=== PATIENT | male | born 1945 | race Caucasian/White ===

== ENCOUNTER 2024-01-01 11:18 | Outpatient (RCR) | payer OTHER, SELFPAY | END 2024-01-01 23:59 | disposition home or self-care (01) | LOC: RPT 11:18 | PROVIDERS: ATTENDING PHYSICIAN Orthopaedic Surgery Adult Reconstructive Orthopaedic Surgery; FAMILY PHYSICIAN Family Medicine | DX: M17.11 Unilateral primary osteoarthritis, right knee (principal); R26.2 Difficulty in walking, not elsewhere classified; Z73.6 Limitation of activities due to disability | CPT/HCPCS: 97110; 97112; 97162; 97530 ==

== ENCOUNTER 2024-01-19 14:47 | Outpatient (RCR) | payer OTHER, SELFPAY | END 2024-01-19 23:59 | disposition home or self-care (01) | LOC: RPT 14:47 | PROVIDERS: ATTENDING PHYSICIAN Orthopaedic Surgery Adult Reconstructive Orthopaedic Surgery; FAMILY PHYSICIAN Family Medicine | DX: M17.11 Unilateral primary osteoarthritis, right knee (principal); Z73.6 Limitation of activities due to disability; R26.2 Difficulty in walking, not elsewhere classified; M62.81 Muscle weakness (generalized) | CPT/HCPCS: 97110; 97112; 97530 ==

== ENCOUNTER 2024-02-01 18:08 | Outpatient (RCR) | payer OTHER, SELFPAY | END 2024-02-01 23:59 | disposition home or self-care (01) | LOC: RPT 18:08 | PROVIDERS: ATTENDING PHYSICIAN Orthopaedic Surgery Adult Reconstructive Orthopaedic Surgery; FAMILY PHYSICIAN Family Medicine | DX: M17.11 Unilateral primary osteoarthritis, right knee (principal); Z73.6 Limitation of activities due to disability; R26.2 Difficulty in walking, not elsewhere classified; M62.81 Muscle weakness (generalized) | CPT/HCPCS: 97110; 97112; 97530 ==

== ENCOUNTER → 2024-02-23 14:37 | Outpatient (REF) | payer OTHER, SELFPAY | LOC: RAD 14:37 | PROVIDERS: ATTENDING PHYSICIAN Family Medicine; FAMILY PHYSICIAN Family Medicine | DX: M79.89 Other specified soft tissue disorders (principal); Z86.718 Personal history of other venous thrombosis and embolism; R06.02 Shortness of breath | CPT/HCPCS: 71046; 93970 ==

== ENCOUNTER → 2024-02-26 10:14 | Outpatient (REF) | payer OTHER, SELFPAY | LOC: HWRCS 10:14 | PROVIDERS: ATTENDING PHYSICIAN Family Medicine | DX: M79.89 Other specified soft tissue disorders (principal) | CPT/HCPCS: 93306 ==

== ENCOUNTER 2024-03-02 08:55 | Outpatient (RCR) | payer OTHER, SELFPAY | END 2024-03-02 23:59 | disposition home or self-care (01) | LOC: RPT 08:55 | PROVIDERS: ATTENDING PHYSICIAN Orthopaedic Surgery Adult Reconstructive Orthopaedic Surgery; FAMILY PHYSICIAN Family Medicine | DX: Z47.1 Aftercare following joint replacement surgery (principal); Z96.651 Presence of right artificial knee joint; G20.A1 Parkinson's disease without dyskinesia, without mention of fluctuations; Z73.6 Limitation of activities due to disability | CPT/HCPCS: 97010; 97110; 97116; 97163; 97530 ==

== ENCOUNTER 2024-03-31 12:56 | Outpatient (RCR) | payer OTHER, SELFPAY | END 2024-03-31 23:59 | disposition home or self-care (01) | LOC: RPT 12:56 | PROVIDERS: ATTENDING PHYSICIAN Orthopaedic Surgery Adult Reconstructive Orthopaedic Surgery; FAMILY PHYSICIAN Family Medicine | DX: M17.11 Unilateral primary osteoarthritis, right knee (principal); Z73.6 Limitation of activities due to disability; R26.2 Difficulty in walking, not elsewhere classified; M62.81 Muscle weakness (generalized) | CPT/HCPCS: 97010; 97110; 97112; 97116; 97140; 97530 ==

== ENCOUNTER 2024-04-09 17:21 | Inpatient (IN) | payer MEDICARE, OTHER, SELFPAY ==
[2024-04-09] VITALS (11 sets, daily range): BP systolic 99–142; BP diastolic 38–77; BMI 30.2; BMI 30.4
--- NOTE | 2024-04-09 14:13 | ED.GENMED ---
History of Present Illness
General
Chief Complaint: Extremity Pain (non-traumatic)
Source: patient and spouse
Exam Limitations: none
Time Seen by Provider: 04/09/24 14:03
Nursing documentation reviewed up to this point in time: agreed with
History of Present Illness
History of Present Illness:
78-year-old male with a past medical history of hypertension, hyperlipidemia, Parkinson's disease who presents to the emergency room for evaluation of left leg swelling, redness, pain. Patient notably had right total knee replacement with Dr. Liang
at [facility] 02/02/2024. He says that he had a left partial knee replacement about 5 years ago he cannot recall name of his surgeon. He says that yesterday evening and particular overnight last night he started to have pains in his left leg
he says shooting from the calf behind the knee and up towards the thigh. He says that he noticed he was having some chills and generalized weakness. His says that she has noticed over the past day or 2 that his left lower leg appears red.
Came to the emergency room to be assessed. He has not had any chest pain or shortness of breath. He denies any trauma to the leg or knee. He denies any other complaints. He does do physical therapy regularly status post knee replacement in January;
he has been ambulatory with a walker, has had difficulty bearing weight today due to pain in the left leg.
Past History
Past History
ED Past Medical History: Other (Parkinson's)
Social History
Tobacco: Non-smoker
Personal:
Living: with family
Review of Systems
Review of Systems
All Other Systems: ROS reviewed and negative except as documented in HPI and ROS
Constitutional: Reports chills; Denies fever
EENT: Denies sore throat or runny nose
Respiratory: Denies cough or trouble breathing
Cardiac: Denies chest pain
ABD/GI: Denies abdominal pain, nausea, vomiting or diarrhea
: Denies flank pain
Musculoskeletal: Reports muscle pain and edema; Denies neck pain or back pain
Skin: Reports other (Lower leg redness)
Neurological: Denies headache
Phy Exam
Physical Exam
Physical Exam:
General: Awake, alert, oriented x3; no acute distress
Head: Normocephalic, atraumatic
Eyes: Conjunctiva normal, sclera anicteric
Throat: Airway intact, handling secretions
Neck: Trachea midline, supple without meningismus
Lungs: Clear to auscultation bilaterally, no wheezing, rales, rhonchi
Heart: Regular rate and rhythm, no murmurs, gallops, or rubs
Neuro: No gross deficits
Skin: Skin findings as below
Extremities: +1 edema left lower extremity confined to the lower leg; he has scattered scabs/dry skin on bilateral lower extremities somewhat worse on the left; he has erythema and warmth of the left lower leg extending from the tibial tuberosity
down towards the ankle and he does have tenderness along the posterior calf as well as posterior medial thigh, no palpable cords; with particular attention of the left knee he has no joint effusion, no pain with manipulation of the patella, no joint
line tenderness and he is able to move the left knee through full active range of motion with only mild discomfort; he has good pulses throughout left lower extremity femoral, popliteal, DP/PT; on exam of the right lower extremity he has well-healed
anterior knee incision, no edema, good pulses, no tenderness and good range of motion
Scores
Heart Failure Risk
Heart Failure Risk Score: Not Applicable
Heart Score for Chest Pain Patients
STEMI patient?: Not applicable
Withdrawal Assessment of Alcohol
Withdrawal Assessment Completed?: Not applicable
Course
Orders/Labs/Results
Orders:
Orders
04/09/24 14:04
CR Knee - Left 4 Or More View* Urgent
Comment:
Reason For Exam: left knee pain
04/09/24 14:12
US Periph Venous LOWER Ext LT Urgent
Comment:
Reason For Exam: LLE redness, swelling
04/09/24 14:42
Complete Blood Count/With Diff Urgent
Comprehensive Metabolic Panel Urgent
PTT Urgent
Prothrombin Time Urgent
04/09/24 14:54
Acetaminophen [Tylenol] 1,000 mg PO NOW STA
04/09/24 15:53
Add On- LAB Urgent
Comments:: in lab
Tests Added?: Retic. count
04/09/24 16:13
Vancomycin 2000 mg IVPB x 1 LOADING DOSE Vancomycin [Vancocin] 2,000 mg 0.9% Sodium Chloride 500 ml [Nss] 500 ml IV NOW
Zosyn 3.375 grams IVPB NOW Piperacillin/Tazo 3.375 Gram [Zosyn] 3.375 gram in 50 ml IV NOW
04/09/24 16:16
Blood Culture Urgent
ERYN Source: Blood/Venous
Specimen Description:
04/09/24 16:17
Lactate Level [Lactic Acid] Urgent
Urinalysis Reflex To Culture Urgent
Ibuprofen [Motrin] 400 mg PO NOW STA
CR Chest Portable - 1 View Urgent
Comment:
Reason For Exam: fever, sepsis
Reason Study Needs to be Portable: Unable to Transport
04/09/24 16:46
Blood Culture Routine
ERYN Source: Blood/Venous
Specimen Description:
Abnormal Lab Results
04/09/24
14:42
WBC 23.8 H 10^3/uL
(4.8-10.8)
RBC 3.24 L 10^6/uL
(4.70-6.10)
Hgb 11.5 L g/dL
(13.0-18.0)
Hct 33.6 L %
(39.0-52.0)
MCV 103.7 H fL
(80.0-94.0)
MCH 35.5 H pg
(27.0-31.0)
RDW 15.4 H %
(11.5-14.5)
Abs Immat Gran (auto) 0.1 H 10^3/uL
(0-0.05)
Absolute Lymphs (auto) 18.8 H 10^3/uL
(1.2-3.4)
Absolute Monos (auto) 1.6 H 10^3/uL
(0.1-0.6)
Neutrophils % 14.0 L %
(42.2-75.2)
Lymphocytes % 78.9 H %
(20.5-51.1)
BUN 37 H mg/dl
(9-20)
Glucose 126 H mg/dl
(70-99)
Total Bilirubin 3.1 H mg/dl
(0.2-1.3)
04/09/24 14:42
04/09/24 14:42
Vital Signs
Temp: 38.0 C
Initial and Last Documented VS:
Initial Vital Signs
Temp Pulse Resp BP Pulse Ox
37.4 C 99 16 104/77 94
04/09/24 13:50 04/09/24 13:50 04/09/24 13:50 04/09/24 13:50 04/09/24 13:50
Last Documented Vital Signs
Temp Pulse Resp BP Pulse Ox
37.4 C 98 29 101/38 94
04/09/24 13:50 04/09/24 14:30 04/09/24 14:30 04/09/24 14:20 04/09/24 14:30
MDM/Problems Addressed
Differential Diagnosis Includes:
DVT, cellulitis, dependent edema
MDM/Problems Addressed:
78-year-old male who is 2 months status post right knee replacement presents with a left lower extremity pain, swelling, redness over the past 24 to 48 hours. He did have some associated chills last night (afebrile here). Vitals significant for
heart rate high 90s, mild tachypnea, exam as above. Will plan to check basic labs including a CBC and CMP, coags. Will check an x-ray of the knee as he reports pain shooting behind the knee although he denies any trauma. Will check left lower
extremity ultrasound to rule out DVT. Will monitor closely reassess after the above.
Patient spiked a fever, will treat with Tylenol. With tachypnea, fever, tachycardia added lactate blood cultures. Add urinalysis and chest x-ray for full septic workup although suspicion at this point is for left lower extremity cellulitis and
sepsis resultant.
Labs reviewed: CBC shows leukocytosis 23.8, anemia 11.5 which is decreased from prior labs although last labs from 2019. CMP elevated T. bili unclear clinical significance, LFTs otherwise normal. His left lower extremity ultrasound is negative for
DVT. X-ray of his knee negative for any acute pathology. Suspicion is for sepsis secondary to left lower extremity cellulitis at this point. Will plan to admit for continued treatment. Cover with antibiotics. Gentle IV fluids. Case discussed
with hospitalist.
Chronic conditions affecting care:
Parkinson's
*Radiology
Radiology exam reviewed: radiology read reviewed
*Pulse Oximetry
Patient hypoxic: no
*Critical Care Note
Total Time (30-74mins, 75-104mins- exclusive of procedures): Not Applicable
Data Reviewed
Review of Other/Old Records Reveals: Labs and Records
Source: patient, records and spouse
Patient Management
Discussion with other providers: Hospitalist (Discussed with hospitalist)
Escalation/DeEscalation of care consider admission/obs:
Admission indicated
ED Attending Note
-
Portions of this chart may have been created with voice recognition software.� Occasional wrong word or��sound alike� substitutions may have occurred due to the inherent limitations of voice recognition software.
Discharge Plan
Departure
Patient Disposition: Admit
Date of Disposition: 04/09/24
Time of Disposition: 16:20
Admit to doctor: Feliz
Presentation/result/management discussed w/ accepting MD/DO: Hospitalist
Discharge Problem:
Cellulitis, Sepsis
Prescriptions:
No Action
tolterodine 4 MG capsule,extended release 24hr
4 mg PO DAILY
carbidopa-levodopa 1 EACH tablet
1 ea PO QID
sertraline 50 MG tablet
50 mg PO DAILY
rosuvastatin 10 MG tablet
10 mg PO DAILY
rasagiline 1 MG tablet
1 mg PO DAILY
mupirocin 1 APPLIC ointment
1 applic intranasal BID Qty: 1 0RF
lisinopril 10 MG tablet
10 mg PO DAILY
aspirin [Adult Aspirin Regimen] 81 MG tablet,delayed release (DR/EC)
81 mg PO BID Qty: 1 0RF
acetaminophen 500 MG tablet
1,000 mg PO QID Qty: 1 0RF
Rx Instructions:
standing order
sennosides [senna] 1 TABLET tablet
2 tab PO BID 0RF
magnesium hydroxide 30 ML suspension
30 ml PO DAILYPRN PRN (Reason: constipation) 0RF
docusate sodium 100 MG capsule
100 mg PO BID 0RF
baclofen 10 MG tablet
10 mg PO BID PRN (Reason: muscle spasms) Qty: 30 0RF
oxycodone 5 MG tablet
5 mg PO Q4HPRN PRN (Reason: moderate-severe pain) Qty: 30 0RF
Rx Instructions:
1 tab moderate pain or 2 if pain severe
Dx total joint replacement
ongoing therapy
famotidine [Acid Transcribing Operators Supervisor (famotidine)] 20 MG tablet
20 mg PO HS Qty: 30 0RF
ondansetron HCl 4 MG tablet
4 mg PO Q6HPRN PRN (Reason: nausea) Qty: 30 0RF
Referrals:
Alvin Driscoll MD [Family Provider] -
Interventions
Interventions:
*Risk Screen - Suicide Last Done: 04/09/24 14:18
*General Assessment Last Done: 04/09/24 14:18
*Neglect/Abuse Screening Last Done: 04/09/24 14:18
ED- Fall Risk Assessment Last Done: 04/09/24 14:18
*ED COVID-19 Vaccine History Last Done: 04/09/24 14:18
ED-Skin Assessment Last Done: 04/09/24 14:18
ED-Peripheral Vascular Assessment Last Done: 04/09/24 14:18
ED-Musculoskeletal Assessment Last Done: 04/09/24 14:18
Discharge Date and Time
Print Language: HAITIAN
[2024-04-09 14:58] LABS: Hematocrit 33.6 % (39.0-52.0); Hemoglobin 11.5 g/dL (13.0-18.0); Mean Corp Hgb Conc. 34.2 g/dL (33.0-37.0); Mean Corpuscular Hgb 35.5 pg (27.0-31.0); Mean Corpuscular Volume 103.7 fL (80.0-94.0); Mean Platelet Volume 9.7 fL (7.4-10.4); Platelet Count 154 10^3/uL (130-400); Red Blood Cell Count 3.24 10^6/uL (4.70-6.10); Red Cell Dist. Width 15.4 % (11.5-14.5); White Blood Cell Count 23.8 10^3/uL (4.8-10.8)
[2024-04-09 15:02] LABS: INR 1.16; PT 14.6 Sec (11.4-14.6)
[2024-04-09 15:03] LABS: APTT 28.5 Sec (23.4-35.0)
[2024-04-09 15:16] LABS: ALT (SGPT) < 10 U/L (0-50); AST (SGOT) 26 U/L (17-59); Albumin 4.5 g/dl (3.5-5.0); Alkaline Phosphatase 72 U/L (38-126); Blood Urea Nitrogen 37 mg/dl (9-20); Calcium 9.5 mg/dl (8.4-10.2); Carbon Dioxide 24 mmol/L (22-30); Chloride 99 mmol/L (98-107); Estimated Creatinine Clearance 74 ml/min; Glucose 126 mg/dl (70-99); Potassium 4.5 mmol/L (3.5-5.1); Sodium 140 mmol/L (135-145); Total Bilirubin 3.1 mg/dl (0.2-1.3); Total Protein 6.5 g/dl (6.3-8.2); eGFR > 60.00
[2024-04-09 15:24] LABS: % Basophils 0.2 % (0-2); % Immature Granulocytes 0.2 % (0-0.5); % Lymphocytes 78.9 % (20.5-51.1); % Monocytes 6.7 % (1.7-9.3); Absolute Basophils 0.1 10^3/uL (0-0.2); Absolute Immature Granulocytes 0.1 10^3/uL (0-0.05); Absolute Lymphocytes 18.8 10^3/uL (1.2-3.4); Absolute Monocytes 1.6 10^3/uL (0.1-0.6); Absolute Neutrophils 3.3 10^3/uL (1.4-6.5); Nucleated Red Blood Cells % 0.1 % (-)
[2024-04-09 16:28] LABS: Reticulocyte Count 1.8 % (0.4-2.8)
--- NOTE | 2024-04-09 16:49 | HPS.HSE ---
Family Physician
-
Family Physician: Alvin Driscoll
Chief Complaint
-
Left lower leg pain, swelling, redness
History of Present Illness
78-year-old male with a history of Parkinson's disease, lives with his , presented to the hospital this afternoon with complaints of left lower extremity pain, swelling, redness. Symptoms started last night. also notes that he has
developed onset of confusion today. Other symptoms include generalized weakness and chills. noted left leg redness for the past 48 hours. No known trauma or falls.
No known history of sepsis or cellulitis.
Had recent skin biopsy of the left leg 2 weeks ago which states was negative for cancer.
Medical History
Past Medical History
Past Medical History: Reports Other
Additional Past Medical History:
Parkinson's disease
Hyperlipidemia
Essential hypertension
Osteoarthritis
CLL, B-cell type
Bilateral cataracts
Lumbar degenerative disc disease
Overactive bladder
Past Surgical History: Reports Other
Additional Past Surgical History:
Right total knee arthroplasty -02/02/2024
Left partial knee replacement
Social History
Tobacco: Non-smoker
Alcohol: None
Drug: None
Personal:
Living: With Family
Family History
Family History: Not pertinent
Allergies / Home Medications
Allergies reflects when Allergies were last updated in [employer].
Home Medications with original date entered in [employer]
Allergy/Medication List:
Allergies
Allergy/AdvReac Type Severity Reaction Status Date / Time
No Known Allergies Allergy Verified 04/09/24 13:50
Home Medications
carbidopa 25 mg-levodopa 100 mg tablet 1 ea PO QID 08/23/19
mupirocin 2 % topical ointment 1 applic intranasal BID #1 tube 08/23/19
rasagiline 1 mg tablet 1 mg PO DAILY 08/23/19
rosuvastatin 10 mg tablet 10 mg PO DAILY 08/23/19
sertraline 50 mg tablet 50 mg PO DAILY 08/23/19
tolterodine 4 mg capsule,extended release 24 hr 4 mg PO DAILY 08/23/19
acetaminophen 500 mg tablet 1,000 mg (2 x 500 mg) PO QID #1 tab 09/07/19
aspirin 81 mg tablet,delayed release (Adult Aspirin Regimen) 81 mg PO BID ##1 09/07/19
lisinopril 10 mg tablet 10 mg PO DAILY 09/07/19
baclofen 10 mg tablet 10 mg PO BID PRN muscle spasms #30 tabs 09/09/19
docusate sodium 100 mg capsule 100 mg PO BID 09/09/19
famotidine 20 mg tablet (Acid Invas Tech (famotidine)) 20 mg PO HS #30 tabs 09/09/19
magnesium hydroxide 400 mg/5 mL oral suspension 30 ml PO DAILYPRN PRN constipation 09/09/19
ondansetron HCl 4 mg tablet 4 mg PO Q6HPRN PRN nausea #30 tabs 09/09/19
oxycodone 5 mg tablet 5 mg PO Q4HPRN PRN moderate-severe pain #30 tabs 09/09/19
sennosides 8.6 mg tablet (senna) 2 tab PO BID 09/09/19
Review of Systems
-
History Source: Patient
A 12 point ROS was completed and negative except as noted: Yes
Physical Exam
Vital Signs
Vital Signs
Temp Pulse Resp BP Pulse Ox
100.4 F H 98 29 101/38 94
04/09/24 16:21 04/09/24 14:30 04/09/24 14:30 04/09/24 14:20 04/09/24 14:30
Physical Exam
General: Well Developed, Well Nourished and Appears in Distress
HEENT: NormoCephalic and Anicteric; No Moist mucous membranes
Respiratory: Clear
Cardiac: S1/S2, Regular Rhythm and Tachycardia
GI: Soft, Non Tender and Non Distended
Musculoskeletal: No Clubbing, No Cyanosis and Edema, Left Lower Extremity
Skin: Warm, Dry and Other (Diffuse left lower extremity erythema below the knee to the ankle, dry skin left lateral ankle)
Neuro: Awake and Alert (Not fully alert)
Hematologic/Lymphatic: No Lymphadenopathy
Psych: Confused
Laboratory Results
-
04/09/24 14:42
04/09/24 14:42
Laboratory Results
PT 14.6 Sec (11.4-14.6) 04/09/24 14:42
INR 1.16 04/09/24 14:42
APTT 28.5 Sec (23.4-35.0) 04/09/24 14:42
Total Bilirubin 3.1 mg/dl (0.2-1.3) H 04/09/24 14:42
AST 26 U/L (17-59) 04/09/24 14:42
ALT < 10 U/L (0-50) 04/09/24 14:42
Alkaline Phosphatase 72 U/L (38-126) 04/09/24 14:42
Impression/Plan
-
Severe sepsis -due to left lower extremity cellulitis. Admit to IMU. Start IV cefazolin. Continue sepsis fluids. Check blood cultures.
Acute metabolic encephalopathy -due to sepsis. Continue supportive measures.
Parkinson's disease -resume home meds. Please update home medication list.
Essential hypertension
Hyperlipidemia
Recent right total knee arthroplasty
Ambulatory dysfunction -has been using a walker since his recent knee surgery. Consult PT/OT.
Full code
updated at bedside.
[2024-04-09 17:07] LABS: Direct Bilirubin 0.3 mg/dl (0.0-0.4)
[2024-04-09] MEDS: TYLENOL 1000 MG PO (17:08)
[2024-04-09] MEDS: NSS 500 IV (17:28)
[2024-04-09] MEDS: NSS 1000 IV ×3 (17:29→19:35)
[2024-04-09] MEDS: ZOSYN 50 IV (17:33)
[2024-04-09 17:35] LABS: Urine Albumin Trace (Neg - Trace); Urine Bilirubin Negative (Negative); Urine Character Clear (Clear); Urine Color Yellow; Urine Glucose Negative (Negative); Urine Ketone 1+ (Negative); Urine Leukocyte Negative (Negative); Urine Nitrite Negative (Negative); Urine Occult Blood Negative (Negative); Urine Urobilinogen Negative (Neg - 1+)
[2024-04-09] MEDS: VANCOCIN 540 MG IV (17:35)
[2024-04-09] MEDS: NSS IV (17:50)
[2024-04-09] MEDS: MOTRIN 400 MG PO (18:20)
[2024-04-09] MEDS: ANCEF 10 IV (19:34)
[2024-04-09] MEDS: LOVENOX 40 MG SC (19:34)
[2024-04-09] MEDS: LIORESAL 10 MG PO (21:47)
[2024-04-09] MEDS: PEPCID 20 MG PO (21:47)
[2024-04-09] MEDS: SINEMET CR 50/200 (EXTENDED RELEASE) 1 TABLET PO (21:48)
--- NOTE | 2024-04-09 22:00 | PTCARENOTE ---
Pt received at beginning of shift as admission from ED. AAOX3. Flat affect. Very weak. Pale. Denies pain on admission. LLE hot to touch, red, +2 edema. Weak pedal pulses B/L. VSS. Febrile. Rectal temp 101.6. SR on CM. Lungs diminished on right
throughout. POX 94-96% on 2L NC. Scabs to left lower extremity. FR[employer] NUT [employer]. Air cushion under buttocks for pt comfort. #25 CC with yellow urine in bag. Pt received CHG bath. Med rec updated and Parkinson's meds ordered and given. instructed to bring
in [place] from home so pt can start in tomorrow. She is staying the night and will be bring med in tomorrow. IVF's infusing as ordered. Pt/ oriented to room and surroundings. Call carrera within reach. Will continue to monitor.
[2024-04-10] VITALS (14 sets, daily range): BP systolic 100–131; BP diastolic 53–79; PULSE 88; O2SAT 94–96
[2024-04-10] MEDS: ANCEF 10 IV ×3 (01:48→18:04)
[2024-04-10 05:14] LABS: Hematocrit 29.9 % (39.0-52.0); Mean Corp Hgb Conc. 33.4 g/dL (33.0-37.0); Mean Corpuscular Hgb 36.1 pg (27.0-31.0); Mean Corpuscular Volume 107.9 fL (80.0-94.0); Platelet Count 112 10^3/uL (130-400); Red Blood Cell Count 2.77 10^6/uL (4.70-6.10); Red Cell Dist. Width 15.4 % (11.5-14.5); White Blood Cell Count 15.9 10^3/uL (4.8-10.8)
[2024-04-10 05:15] LABS: ALT (SGPT) < 10 U/L (0-50); AST (SGOT) 19 U/L (17-59); Albumin 3.2 g/dl (3.5-5.0); Alkaline Phosphatase 59 U/L (38-126); Blood Urea Nitrogen 34 mg/dl (9-20); Calcium 8.4 mg/dl (8.4-10.2); Carbon Dioxide 21 mmol/L (22-30); Chloride 108 mmol/L (98-107); Estimated Creatinine Clearance 93 ml/min; Glucose 103 mg/dl (70-99); Potassium 3.8 mmol/L (3.5-5.1); Sodium 141 mmol/L (135-145); Total Bilirubin 1.7 mg/dl (0.2-1.3); Total Protein 5.2 g/dl (6.3-8.2); eGFR > 60.00
[2024-04-10] MEDS: NSS 1000 IV (05:24)
--- NOTE | 2024-04-10 08:35 | W.PN.HOSP.TC ---
Today's Communication/Plan
-
Continue antibiotics
Await cultures
PT/OT
Assessment / Plan
Assessment / Plan
Gen-more awake, alert, NAD
HEENT-NC, AT, anicteric, clear oral mm
Neck-supple
CV-reg, no M, +S1/S2
Lungs-clear B/L
Abd-soft, NT, ND
Ext-no edema
Musculoskeletal-no cyanosis, clubbing
Skin-warm and dry
Neuro-grossly non-focal
Psych-calm, cooperative
Severe sepsis -due to left lower extremity cellulitis. Clinically improving. WBCs trending down. Continue IV cefazolin. Await cultures.
Acute metabolic encephalopathy -due to sepsis. Mental status improving. Continue supportive measures.
Acute thrombocytopenia -likely due to sepsis. Monitor for now.
Macrocytic anemia - unknown acuity. Will check anemia labs. Reticulocyte count 1.8%. Hemoglobin noted to be 10.0. Baseline unknown.
Parkinson's disease -continue home medications.
Essential hypertension -hold antihypertensives given relative hypotension.
Hyperlipidemia -on rosuvastatin.
Recent right total knee arthroplasty
Ambulatory dysfunction -has been using a walker since his recent knee surgery. Consult PT/OT.
Full code
Anticipated Discharge: > 48 hours
Subjective/Interval History
-
Date of Service: April 10, 2024
Patient seen and examined. Feeling better. No complaints. Nursing reports he finished all his breakfast.
Objective Data
-
Labs:
Laboratory Results
04/10/24
04:08
WBC 15.9 H
Hgb 10.0 L
Hct 29.9 L
Plt Count 112 L D
Sodium 141
Potassium 3.8
Chloride 108 H
Carbon Dioxide 21 L
BUN 34 H
Creatinine 0.8
Glucose 103 H
Calcium 8.4
Total Bilirubin 1.7 H D
AST 19
ALT < 10
Alkaline Phosphatase 59
Vital Signs:
Vital Signs
Temp Pulse Resp BP Pulse Ox
98.3 F 79 20 104/61 96
04/10/24 05:34 04/10/24 05:15 04/10/24 05:15 04/10/24 02:00 04/10/24 05:15
I&O
04/09/24 04/10/24 04/11/24
06:59 06:59 06:59
Intake Total 1100 / 1100
Output Total 400 / 400
Balance 700 / 700
Review of Systems
-
History Source: Patient
All other systems: Reviewed and negative
[2024-04-10 08:38] LABS: Absolute Neutrophils -Man Diff 1.2 10^3/uL (1.4-6.5); Band Neutrophils 2 % (0-3); Segmented Neutrophils 6 % (42-75)
[2024-04-10 08:39] LABS: Anisocytosis 1+; Lymphocytes 91 % (20-51); Monocytes 1 % (2-9); Normal RBC Morphology No; Platelets Checked Yes
[2024-04-10 08:40] LABS: Acanthocytes 1+; Basophilic Stippling 1+; Hypochromasia 1+; Polychromasia 1+; Total Cells Counted 100
[2024-04-10] MEDS: ASPIR LOW (ENTERIC COATED) 81 MG PO (08:51)
[2024-04-10] MEDS: COLACE 100 MG PO (08:51)
[2024-04-10] MEDS: CRESTOR 10 MG PO (08:51)
[2024-04-10] MEDS: LIORESAL 10 MG PO (08:51)
[2024-04-10] MEDS: TYLENOL 650 MG PO ×2 (08:51→18:07)
[2024-04-10] MEDS: 0.45%NACL 1000 IV (08:55)
[2024-04-10 09:41] LABS: Total Iron Binding Capacity 219 ug/dl (261-462)
[2024-04-10 10:17] LABS: Iron < 20 ug/dl (49-181)
[2024-04-10 11:19] LABS: Folate 3.5 ng/ml (2.76-20); Vitamin B12 256 pg/ml (239-931)
--- NOTE | 2024-04-10 11:48 | CM ---
CM reviewed medical records. CM met with patient and in room. Patient has a history of VN with [facility]. Patient is currently receiving PT from outpatient therapy. Patient uses a walker. Patient has had a history of placement at [facility]. Patient is active with his PCP Dr. Driscoll. Patient uses [facility] for medication services.
Pending PT evaluation for further discharge planning efforts.
PLAN: SNF vs. HH
[2024-04-10] MEDS: FOLVITE 1 MG PO (12:47)
[2024-04-10] MEDS: VITAMIN B-12 1000 MCG PO (12:48)
--- NOTE | 2024-04-10 12:48 | PTCARENOTE ---
Rec'd pt this AM. febrile, complained of pain with spasm in left leg. incontinent of large amount of stool x2. vital signs stable.
[2024-04-10] MEDS: LOVENOX 40 MG SC (18:04)
--- NOTE | 2024-04-10 18:35 | PTCARENOTE ---
Pt reports leg spasm pain mostly relieved by placing legs in dependent position. pt febrile, incontinent or bladder and bowel.
[2024-04-10] MEDS: COLACE PO (22:19)
[2024-04-10] MEDS: SINEMET CR 50/200 (EXTENDED RELEASE) 1 TABLET PO (23:03)
[2024-04-10] MEDS: NON-FORMULARY ITEM 50 MG PO (23:03)
[2024-04-10] MEDS: PEPCID 20 MG PO (23:03)
[2024-04-11] VITALS (15 sets, daily range): BP systolic 121–143; BP diastolic 63–79; PULSE 88; O2SAT 94
[2024-04-11] MEDS: ANCEF 10 IV ×3 (03:08→17:13)
--- NOTE | 2024-04-11 04:30 | PTCARENOTE ---
Pt appeared to sleep well over night with at bed side. Pt respiration even and unlabored spo2 remaining 925 or higher. Pt had no complaints over night. Call carrera with in reach. Assessment care and vitals as charted.
[2024-04-11 06:11] LABS: Hematocrit 27.6 % (39.0-52.0); Hemoglobin 9.3 g/dL (13.0-18.0); Mean Corp Hgb Conc. 33.7 g/dL (33.0-37.0); Mean Corpuscular Volume 103.8 fL (80.0-94.0); Mean Platelet Volume 10.6 fL (7.4-10.4); Platelet Count 102 10^3/uL (130-400); Red Blood Cell Count 2.66 10^6/uL (4.70-6.10); Red Cell Dist. Width 15.2 % (11.5-14.5); White Blood Cell Count 16.2 10^3/uL (4.8-10.8)
[2024-04-11 07:02] LABS: ALT (SGPT) < 10 U/L (0-50); AST (SGOT) 16 U/L (17-59); Albumin 2.9 g/dl (3.5-5.0); Alkaline Phosphatase 54 U/L (38-126); Blood Urea Nitrogen 27 mg/dl (9-20); Calcium 8.5 mg/dl (8.4-10.2); Carbon Dioxide 21 mmol/L (22-30); Chloride 106 mmol/L (98-107); Estimated Creatinine Clearance 93 ml/min; Glucose 114 mg/dl (70-99); Potassium 3.5 mmol/L (3.5-5.1); Sodium 138 mmol/L (135-145); Total Bilirubin 1.6 mg/dl (0.2-1.3); Total Protein 4.8 g/dl (6.3-8.2); eGFR > 60.00
[2024-04-11 07:20] LABS: % Basophils 0.3 % (0-2); % Eosinophils 0.1 % (0-6); % Immature Granulocytes 0.2 % (0-0.5); % Lymphocytes 70.7 % (20.5-51.1); % Monocytes 6.1 % (1.7-9.3); % Neutrophils 22.6 % (42.2-75.2); Absolute Basophils 0.1 10^3/uL (0-0.2); Absolute Lymphocytes 11.4 10^3/uL (1.2-3.4); Absolute Neutrophils 3.7 10^3/uL (1.4-6.5); Nucleated Red Blood Cells % 0 % (-)
[2024-04-11] MEDS: COLACE PO ×2 (09:03→19:02)
[2024-04-11] MEDS: VITAMIN B-12 1000 MCG PO (09:16)
[2024-04-11] MEDS: FOLVITE 1 MG PO (09:16)
[2024-04-11] MEDS: ASPIR LOW (ENTERIC COATED) 81 MG PO (09:16)
[2024-04-11] MEDS: CRESTOR 10 MG PO (09:16)
--- NOTE | 2024-04-11 13:30 | W.PN.HOSP.TC ---
Today's Communication/Plan
-
continue IV abx, elevated LLE. consult ID
Assessment / Plan
Assessment / Plan
Assessment:
Severe sepsis
LLE cellulitis
- follow WBC/fever curve
- elevated LLE at all times
- ID consulted; currently on IV Ancef with little response
- CT without abscess or signs of nec fasc
Acute metabolic encephalopathy - due to sepsis. Mental status improving. Continue supportive measures.
Acute thrombocytopenia - likely due to sepsis. Monitor for now.
Macrocytic anemia - unknown acuity. Reticulocyte count 1.8%. Hemoglobin noted to be 10.0. Baseline unknown. B12 256 - start oral replacement. Folate normal.
Parkinson's disease - continue home medications.
Essential hypertension - hold antihypertensives given relative hypotension.
Hyperlipidemia - on rosuvastatin.
Recent right total knee arthroplasty
Ambulatory dysfunction - has been using a walker since his recent knee surgery. PT/OT following
DVT ppx: Lovenox
Code: Full
Anticipated Discharge: > 48 hours
Subjective/Interval History
-
Date of Service: April 11, 2024
LLE cellulitis - remains edematous, patient not elevating legs, now blisters have formed per RN
WBC slightly increased today
Objective Data
-
Labs:
Laboratory Results
04/11/24
05:42
WBC 16.2 H
Hgb 9.3 L
Hct 27.6 L
Plt Count 102 L
Sodium 138
Potassium 3.5
Chloride 106
Carbon Dioxide 21 L
BUN 27 H
Creatinine 0.8
Glucose 114 H
Calcium 8.5
Total Bilirubin 1.6 H
AST 16 L
ALT < 10
Alkaline Phosphatase 54
Vital Signs:
Vital Signs
Temp Pulse Resp BP Pulse Ox
99.2 F 92 27 142/78 95
04/11/24 11:47 04/11/24 12:00 04/11/24 12:00 04/11/24 12:00 04/11/24 12:00
I&O
04/10/24 04/11/24 04/12/24
06:59 06:59 06:59
Intake Total 1100 / 1100 1010 / 1010 360 / 360
Output Total 400 / 400
Balance 700 / 700 1010 / 1010 360 / 360
Physical Exam
-
General: No Apparent Distress and Obese
HEENT: Normocephalic
Respiratory: Negative Wheezes or Rales
Cardiac: Regular Rhythm and S1/S2
GI: Soft
Skin: Other (LLE cellulitis with calf blisters, painful, no significant drainage noted)
Neuro: AO x 3
Psych: Calm
Data Reviewed
-
Total Time Spent with Patient (in minutes): 45
Labs: Labs Reviewed by me
--- NOTE | 2024-04-11 14:04 | CON.ID ---
Consultation
-
Date/Time Consultation Requested: April 11, 2024
Date/Time Consultation Performed: April 11, 2024
Requesting Provider: Dr. Yadira Dailey
Performing Provider: Dr. Salma Alejo
Reason for Consultation: Extensive left leg cellulitis
Chief Complaint / Past History
Chief Complaint
Left leg swelling and redness
History of Present Illness
78-year-old male with history of Parkinson's, CLL under observation, history of right total knee replacement February 02, 2024, who woke up on April 09 with chills. He then noted that his left leg was swollen and red. He was somewhat confused.
Patient was brought to the ER the same day. Temperature was 104.2. White count 23.8. He received vancomycin in the ER then transition to cefazolin. Patient mental status waxes and wanes per . He denies recent abrasions or cuts to the left
leg. His states approximately seen in January he nicked his left calf with some bleeding, but it healed. He developed large blisters on the leg during this admission. The redness is stable.
Past History
Additional Past Medical History:
Parkinson's disease
Hypertension
CLL
HLD
Overactive bladder
Osteoarthritis
Lumbar degenerative disc disease
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
Left partial knee replacement
Allergy History:
No Known Allergies Allergy (Verified 04/09/24 13:50)
Current Antibiotics:
cefazolin d3
Social History
Tobacco: Non-Smoker
Alcohol: None
Drug: None
Personal:
Living: With Family
Family History
Family History: Not Pertinent
Review of Systems
Review of Systems
General: Fever, Chills and Change in Appetite
HEENT: Negative Sinus Problems, Headache or Pharyngitis
Cardiovascular: Negative Chest Pain or Dyspnea
Respiratory: Negative Dyspnea or Cough
Gasteroenterology: Other (+ diarrhea since start of abx); Negative Nausea or Vomiting
Genital / Urological: Negative Dysuria or Flank Pain
Endocrine: Weakness
Neurological: Negative Headache or Dizziness
All systems: All other systems were reviewed and were negative
Vital Signs
Temp Pulse Resp BP Pulse Ox
99.2 F 92 27 142/78 95
04/11/24 11:47 04/11/24 12:00 04/11/24 12:00 04/11/24 12:00 04/11/24 12:00
Selected Entries
04/10/24
18:00
Temp 101.1 F H
Physical Exam
Physical Exam
Constitutional: Comfortable
Eyes: Sclera Anicteric
Cardiovascular: Regular Rate and S1/S2
Pulmonary: Clear
Gastrointestinal: Soft, Non Tender, Non Distended and Normal Bowel Sounds
Genito-Urinary: Negative Light or CVA Tenderness
Extremities: Other (LLE: 3+ edeam, + edema ankle up leg to medial thigh and groin. + Several large blisters with serous weeping. )
Neurological: AO x 3
Lab / Diagnostic Study Results
04/11/24 05:42
04/11/24 05:42
Abs Immat Gran (auto) 0.0 10^3/uL (0-0.05) 04/11/24 05:42
Absolute Neuts (auto) 3.7 10^3/uL (1.4-6.5) 04/11/24 05:42
Absolute Lymphs (auto) 11.4 10^3/uL (1.2-3.4) H 04/11/24 05:42
Absolute Monos (auto) 1.0 10^3/uL (0.1-0.6) H 04/11/24 05:42
Absolute Basos (auto) 0.1 10^3/uL (0-0.2) 04/11/24 05:42
Total Counted 100 04/10/24 04:08
Immature Gran % 0.2 % (0-0.5) 04/11/24 05:42
Neutrophils % 22.6 % (42.2-75.2) L 04/11/24 05:42
Lymphocytes % 70.7 % (20.5-51.1) H 04/11/24 05:42
Monocytes % 6.1 % (1.7-9.3) 04/11/24 05:42
Eosinophils % 0.1 % (0-6) 04/11/24 05:42
Basophils % 0.3 % (0-2) 04/11/24 05:42
Abs Neuts (Manual) 1.2 10^3/uL (1.4-6.5) L 04/10/24 04:08
Segmented Neutrophils 6 % (42-75) L 04/10/24 04:08
Band Neutrophils 2 % (0-3) 04/10/24 04:08
Lymphocytes (Manual) 91 % (20-51) H 04/10/24 04:08
ESR Cancelled 04/09/24 14:04
PT 14.6 Sec (11.4-14.6) 04/09/24 14:42
INR 1.16 04/09/24 14:42
Lactic Acid 1.0 mmol/L (0.7-2.0) 04/09/24 17:14
C-Reactive Protein Cancelled 04/09/24 14:04
Microbiology Results
Micro:
04/09/24 17:14 Blood Culture - Preliminary
Blood/Venous Coagulase neg. staphylococcus
Additional testing on request
Gram Stain - Preliminary
04/09/24 17:14 Blood Culture - Preliminary
Blood/Venous No Growth in 24 hours- Final report to follow
04/10/24 CT LE: Probable diffuse left lower extremity cellulitis. No abscess. Intact osseous structures.
Assessment / Plan
# Severe LLE non-purulent cellulitis
# Sepsis with fever and leukocytosis
- Suspect group a streptococcus.
- Bcx 1 of 2 CoNS=contaminant.
-Continue IV cefazolin.
-Add short course clindamycin 600 mg IV every 6 hours as toxin inhibitor.
-Trend temperature and white count.
# Conditions prior to admission
Parkinson's disease
Hypertension
CLL
HLD
Overactive bladder
Osteoarthritis
Lumbar degenerative disc disease
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
Left partial knee replacement
[2024-04-11] MEDS: SINEMET 25-100 2 TABLET PO ×2 (14:42→17:13)
[2024-04-11] MEDS: RASAGILINE MESYLATE 1 MG PO (14:43)
--- NOTE | 2024-04-11 15:45 | PTCARENOTE ---
Rec'd pt this AM. Incontinent of bladder and bowel. forgetful at times. large blisters developed on left, cellulitic leg. MD aware. ID consulted. vital signs stable.
[2024-04-11] MEDS: LOVENOX 40 MG SC (17:13)
[2024-04-11] MEDS: CLEOCIN 50 IV (17:48)
[2024-04-11] MEDS: SINEMET CR 50/200 (EXTENDED RELEASE) 1 TABLET PO (20:45)
[2024-04-11] MEDS: NON-FORMULARY ITEM 50 MG PO (20:45)
[2024-04-11] MEDS: PEPCID 20 MG PO (20:45)
[2024-04-11] MEDS: NEURONTIN 100 MG PO (20:45)
[2024-04-11 21:32] LABS: Hepatitis C Antibody Negative (Negative)
--- NOTE | 2024-04-12 00:06 | PTCARENOTE ---
pt m/s level care, pt with bed on 2N, report called, pt transferred to floor with and all belongings.
[2024-04-12] MEDS: CLEOCIN 50 IV ×5 (00:08→23:53)
[2024-04-12 00:09] VITALS: BP 128/73
--- NOTE | 2024-04-12 00:33 | PTCARENOTE ---
Report received from previous RN; pt transported via hospital bed. Assessment as documented. Hygiene performed, abx given as ordered, see MAR. Pt and oriented to new unit and call carrera. Pt resting in bed comfortably, at the bedside.
[2024-04-12] MEDS: ANCEF 10 IV ×3 (01:17→17:21)
[2024-04-12 07:35] VITALS: BP 128/68
[2024-04-12 08:00] LABS: Blood Urea Nitrogen 24 mg/dl (9-20); Calcium 8.1 mg/dl (8.4-10.2); Carbon Dioxide 21 mmol/L (22-30); Chloride 106 mmol/L (98-107); Estimated Creatinine Clearance 106 ml/min; Glucose 104 mg/dl (70-99); Sodium 140 mmol/L (135-145); eGFR > 60.00
[2024-04-12 08:18] LABS: Hematocrit 25.6 % (39.0-52.0); Hemoglobin 8.9 g/dL (13.0-18.0); Mean Corp Hgb Conc. 34.8 g/dL (33.0-37.0); Mean Corpuscular Hgb 36.5 pg (27.0-31.0); Mean Corpuscular Volume 104.9 fL (80.0-94.0); Mean Platelet Volume 10.6 fL (7.4-10.4); Platelet Count 90 10^3/uL (130-400); Red Blood Cell Count 2.44 10^6/uL (4.70-6.10); Red Cell Dist. Width 14.9 % (11.5-14.5); White Blood Cell Count 20.9 10^3/uL (4.8-10.8)
[2024-04-12] MEDS: SINEMET 25-100 2 TABLET PO ×3 (09:05→17:21)
[2024-04-12] MEDS: COLACE PO ×2 (09:05→20:26)
[2024-04-12] MEDS: CRESTOR 10 MG PO (09:05)
[2024-04-12] MEDS: RASAGILINE MESYLATE 1 MG PO (09:05)
[2024-04-12] MEDS: VITAMIN B-12 1000 MCG PO (09:05)
[2024-04-12] MEDS: FOLVITE 1 MG PO (09:05)
[2024-04-12] MEDS: ASPIR LOW (ENTERIC COATED) 81 MG PO (09:05)
[2024-04-12 09:49] LABS: % Basophils 0.1 % (0-2); % Eosinophils 0.4 % (0-6); % Immature Granulocytes 0.3 % (0-0.5); % Lymphocytes 74.4 % (20.5-51.1); % Monocytes 6.5 % (1.7-9.3); % Neutrophils 18.3 % (42.2-75.2); Absolute Eosinophils 0.1 10^3/uL (0-0.7); Absolute Immature Granulocytes 0.1 10^3/uL (0-0.05); Absolute Lymphocytes 15.5 10^3/uL (1.2-3.4); Absolute Monocytes 1.4 10^3/uL (0.1-0.6); Absolute Neutrophils 3.8 10^3/uL (1.4-6.5); Nucleated Red Blood Cells % 0 % (-)
--- NOTE | 2024-04-12 11:26 | W.PN.ID1 ---
Date of Service
Date of Service: April 12, 2024
Today's Communication
Continue cefazolin/clinda.
Assessment / Plan
# Severe LLE non-purulent cellulitis
# Fever resolved
# Leukocytosis trended up. No diarrhea.
- Suspect Group a streptococcus.
- Bcx 1 of 2 CoNS=contaminant.
-Continue IV cefazolin.
-Continue short course clindamycin 600 mg IV every 6 hours as toxin inhibitor.
-Trend white count.
-Follow clinically.
# Conditions prior to admission
Parkinson's disease
Hypertension
CLL
HLD
Overactive bladder
Osteoarthritis
Lumbar degenerative disc disease
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
Left partial knee replacement
Chief Complaint
-: Leukocytosis and Cellulitis
Subjective / Review of Systems
No new complaints.
Vital Signs / Physical Exam
Vital Signs
Vital Signs
Temp Pulse Resp BP Pulse Ox
98.2 F 76 16 128/68 95
04/12/24 07:35 04/12/24 07:35 04/12/24 07:35 04/12/24 07:35 04/12/24 11:15
Physical Exam
Pulmonary: Clear
Gastrointestinal: Soft, Non Tender and Non Distended
Extremities: Edema (LLE decreased edema. Erythema receding from medial thigh. + serous drainage. )
Objective Data
Lab Data
Lab Results
04/12/24 07:00
04/12/24 07:00
ESR Cancelled 04/09/24 14:04
PT 14.6 Sec (11.4-14.6) 04/09/24 14:42
INR 1.16 04/09/24 14:42
APTT 28.5 Sec (23.4-35.0) 04/09/24 14:42
Estimated Creat Clear 106 ml/min 04/12/24 07:00
Lactic Acid 1.0 mmol/L (0.7-2.0) 04/09/24 17:14
Total Bilirubin 1.6 mg/dl (0.2-1.3) H 04/11/24 05:42
AST 16 U/L (17-59) L 04/11/24 05:42
ALT < 10 U/L (0-50) 04/11/24 05:42
Alkaline Phosphatase 54 U/L (38-126) 04/11/24 05:42
C-Reactive Protein Cancelled 04/09/24 14:04
Most recent labs reviewed.
Micro Results:
04/09/24 17:14 Blood Culture - Preliminary
Blood/Venous No Growth in 48 hours- Final report to follow
04/09/24 17:14 Blood Culture - Preliminary
Blood/Venous Coagulase neg. staphylococcus
Additional testing on request
Gram Stain - Preliminary
04/10/24 CT LE: Probable diffuse left lower extremity cellulitis. No abscess. Intact osseous structures.
--- NOTE | 2024-04-12 11:39 | W.PN.HOSP.TC ---
Today's Communication/Plan
-
continue IV Abx per ID, follow labs/fever curve and clinically
Assessment / Plan
Assessment / Plan
Assessment:
Severe sepsis
LLE cellulitis, Group A strep suspected
- CT without abscess or signs of nec fasc
- follow WBC/fever curve
- elevated LLE at all times
- ID consulting
- continue IV Ancef
- continue IV Clindamycin for toxin inhibition
CoNS bacteremia - likely contaminant per ID
Acute metabolic encephalopathy - due to sepsis. Mental status improving. Continue supportive measures.
Acute thrombocytopenia - likely due to sepsis. Monitor for now.
Macrocytic anemia - unknown acuity. Reticulocyte count 1.8%. Hemoglobin noted to be 10.0. Baseline unknown. B12 256 - on oral replacement. Folate normal.
Parkinson's disease - continue home medications.
Essential hypertension - hold antihypertensives given relative hypotension.
Hyperlipidemia - on rosuvastatin.
Recent right total knee arthroplasty
Ambulatory dysfunction - has been using a walker since his recent knee surgery. PT/OT following
DVT ppx: Lovenox
Code: Full
Anticipated Discharge: > 48 hours
Subjective/Interval History
-
Date of Service: April 12, 2024
denies any new complaints at present
WBC higher at 21
Objective Data
-
Labs:
Laboratory Results
04/12/24
07:00
WBC 20.9 H
Hgb 8.9 L
Hct 25.6 L
Plt Count 90 L
Sodium 140
Potassium 3.0 L
Chloride 106
Carbon Dioxide 21 L
BUN 24 H
Creatinine 0.7
Glucose 104 H
Calcium 8.1 L
Vital Signs:
Vital Signs
Temp Pulse Resp BP Pulse Ox
98.2 F 76 16 128/68 95
04/12/24 07:35 04/12/24 07:35 04/12/24 07:35 04/12/24 07:35 04/12/24 11:15
I&O
04/11/24 04/12/24 04/13/24
06:59 06:59 06:59
Intake Total 1010 / 1010 940 / 940
Balance 1010 / 1010 940 / 940
Physical Exam
-
General: No Apparent Distress
HEENT: Normocephalic
Respiratory: Negative Wheezes
Cardiac: Regular Rhythm and S1/S2
GI: Soft
Genito-urinary: No Costovertebral Tender
Musculoskeletal: Other (LLE decreased edema. Erythema receding from medial thigh. + serous drainage.)
Neuro: AO x 3
Psych: Calm
Data Reviewed
-
Total Time Spent with Patient (in minutes): 44
Labs: Labs Reviewed by me
--- NOTE | 2024-04-12 12:26 | CM ---
Reviewed the chart notes and spoke with the patient and his spouse at the bedside. Discussed PT/OT recommendations for SNF/rehab. Patient not interested at this time. Spouse discussed that patient was weak yesterday due to not receiving his usual
Parkinson's medications. Patient now on them per spouse. CM continues to be available to patient/family and is monitoring medical plan for needs at discharge.
Plan: Discharge plans will depend on the patient's progress.
[2024-04-12 15:30] VITALS: BP 112/68
--- NOTE | 2024-04-12 16:18 | WOUNDNOTE ---
R MEDIAL LOWER LEG WITH FLASH
--- NOTE | 2024-04-12 16:18 | WOUNDNOTE ---
R LOWER MEDIAL LEG
--- NOTE | 2024-04-12 16:19 | WOUNDNOTE ---
L LATERAL LOWER LEG
--- NOTE | 2024-04-12 16:21 | WOUNDNOTE ---
L MEDIAL LOWER LEG AND FOOT
--- NOTE | 2024-04-12 16:21 | WOUNDNOTE ---
L MEDIAL LOWER LEG
--- NOTE | 2024-04-12 16:25 | WOUNDNOTE ---
SASHA RN note: Patient admitted with cellulitis of L leg and sepsis.
See H&P for complete history. Lives with at home.
PMH: basal cell cancer, HTN, Parkinson's, ambulatory dysfunction, R total knee replacement on 02/02/24, L partial knee replacement on 09/07/19.
Wound Location and type/assessment: Patient admitted with: cellulitis of L leg with weeping blisters. Small healing skin tear on L arm from dog scratch. Patient turned to side, sacrum intact, barrier cream in use. Heels intact.
Appetite: Fair.
Pressure redistribution devices in place: Air mattress, pillows under calves. leg elevation.
Plan: L leg applied adaptic, alginate, abd pad and kerlix recommend bid until less drainage then can do daily. Ubaldo wrap applied and tolerating. Will confirm orders with hospitalist and updated nurse.
Updated care plan and will follow as needed.
Note to case management of equipment requested for discharge: None.
Recommend follow up at wound care center upon discharge.
[2024-04-12] MEDS: LOVENOX 40 MG SC (17:21)
[2024-04-12] MEDS: NEURONTIN 100 MG PO (21:42)
[2024-04-12] MEDS: NON-FORMULARY ITEM 1 MG PO (21:43)
[2024-04-12] MEDS: SINEMET CR 50/200 (EXTENDED RELEASE) 1 TABLET PO (21:43)
[2024-04-12] MEDS: PEPCID 20 MG PO (21:43)
[2024-04-12 23:35] VITALS: BP 128/66
[2024-04-12 23:36] VITALS: BP 128/66
[2024-04-13] MEDS: KCL 40 MEQ PO (02:13)
[2024-04-13] MEDS: ANCEF 10 IV ×3 (02:13→17:41)
[2024-04-13] MEDS: LIORESAL 10 MG PO (02:22)
[2024-04-13] MEDS: CLEOCIN 50 IV ×3 (05:43→18:11)
[2024-04-13 06:56] LABS: Hematocrit 25.2 % (39.0-52.0); Hemoglobin 8.5 g/dL (13.0-18.0); Mean Corp Hgb Conc. 33.7 g/dL (33.0-37.0); Mean Corpuscular Hgb 34.7 pg (27.0-31.0); Mean Corpuscular Volume 102.9 fL (80.0-94.0); Mean Platelet Volume 10.7 fL (7.4-10.4); Platelet Count 97 10^3/uL (130-400); Red Blood Cell Count 2.45 10^6/uL (4.70-6.10); Red Cell Dist. Width 14.8 % (11.5-14.5); White Blood Cell Count 21.7 10^3/uL (4.8-10.8)
[2024-04-13 07:04] LABS: Blood Urea Nitrogen 25 mg/dl (9-20); Calcium 8.1 mg/dl (8.4-10.2); Carbon Dioxide 24 mmol/L (22-30); Chloride 107 mmol/L (98-107); Estimated Creatinine Clearance 106 ml/min; Glucose 99 mg/dl (70-99); Potassium 3.4 mmol/L (3.5-5.1); Sodium 142 mmol/L (135-145); eGFR > 60.00
[2024-04-13 07:40] VITALS: BP 125/70
[2024-04-13 08:08] LABS: % Basophils 0.1 % (0-2); % Eosinophils 0.4 % (0-6); % Immature Granulocytes 0.2 % (0-0.5); % Monocytes 3.7 % (1.7-9.3); % Neutrophils 12.6 % (42.2-75.2); Absolute Eosinophils 0.1 10^3/uL (0-0.7); Absolute Immature Granulocytes 0.1 10^3/uL (0-0.05); Absolute Monocytes 0.8 10^3/uL (0.1-0.6); Absolute Neutrophils 2.7 10^3/uL (1.4-6.5); Nucleated Red Blood Cells % 0 % (-)
[2024-04-13] MEDS: COLACE PO ×2 (08:40→20:44)
[2024-04-13] MEDS: FOLVITE 1 MG PO (08:41)
[2024-04-13] MEDS: CRESTOR 10 MG PO (08:41)
[2024-04-13] MEDS: ASPIR LOW (ENTERIC COATED) 81 MG PO (08:41)
[2024-04-13] MEDS: SINEMET 25-100 2 TABLET PO ×3 (08:41→18:10)
[2024-04-13] MEDS: RASAGILINE MESYLATE 1 MG PO (08:41)
[2024-04-13] MEDS: VITAMIN B-12 1000 MCG PO (08:44)
--- NOTE | 2024-04-13 09:00 | CON.ONC ---
Impression
Impression
LLE cellulitis
Stage 0 CLL
Anemia of inflammation
Parkinson's disease
Plan
Plan
ABX Tx per ID with clinical monitoring. Not sure we can use WBC reliably to monitor his response to Abx therapy.
CLL is known to patient. Likely partially the cause of the leukocytosis.
May be a candidate for outpt IVIG if hypogammaglobulinemia. Check IgG and SPEP.
Thank you.
Patient History
History of Present Illness
Family Physician: Alvin Driscoll
Heme Consult : CLL
CC: Left lower leg pain, swelling, redness
HPI:
78-year-old male with a history of Stage 0 CLL (follows at [facility] Dr. Ramírez Sagastume on expectant observation), Parkinson's disease, lives with his , presented to the hospital with complaints of left lower extremity pain, swelling, redness and was
diagnosed with a left LE cellulitis. Has abnormal CBC with persistent leukocytosis with lymphocyte predominance. Asked to eval for CLL.
Past-Medical/Surgical History
PMH:
Stage 0 CLL follows Q6 mo at [facility] - Dr. Sagastume
Parkinson's disease
Hyperlipidemia
Essential hypertension
Osteoarthritis
Bilateral cataracts
Lumbar degenerative disc disease
Overactive bladder
SH:
Non smoker, no ETOH
Patient Medication
�Medication �Instructions �Recorded �Confirmed �Last Taken �Type
rasagiline 1 mg tablet 1 mg PO DAILY PARKINSON 08/23/19 09/07/19 09/05/19 08:00 History
rosuvastatin 10 mg tablet 10 mg PO DAILY High Cholesterol 08/23/19 04/09/24 09/05/19 08:00 History
sertraline 50 mg tablet 100 mg PO DAILY Mental 08/23/19 09/07/19 09/05/19 08:00 History
Health/Anxiety
tolterodine 4 mg capsule,extended 4 mg PO DAILY Urinary Issue 08/23/19 09/07/19 09/05/19 08:00 History
release 24 hr
aspirin 81 mg tablet,delayed 81 mg PO BID ##1 09/07/19 04/09/24 Unknown Rx
release (Adult Aspirin Regimen)
lisinopril 10 mg tablet 10 mg PO DAILY Blood Pressure 09/07/19 04/09/24 09/06/19 08:00 History
baclofen 10 mg tablet 10 mg PO BID PRN muscle spasms #30 09/09/19 04/09/24 Unknown Rx
tabs
docusate sodium 100 mg capsule 100 mg PO BID 09/09/19 04/09/24 Unknown Rx
famotidine 20 mg tablet (Acid 20 mg PO HS #30 tabs 09/09/19 04/09/24 Unknown Rx
Assistant [employer]er (famotidine))
magnesium hydroxide 400 mg/5 mL 30 ml PO DAILYPRN PRN constipation 09/09/19 04/09/24 Unknown Rx
oral suspension
ondansetron HCl 4 mg tablet 4 mg PO Q6HPRN PRN nausea #30 tabs 09/09/19 Unknown Rx
oxycodone 5 mg tablet 5 mg PO Q4HPRN PRN moderate-severe 09/09/19 Unknown Rx
pain #30 tabs
acetaminophen 500 mg tablet 50 mg PO HS Pain 04/09/24 04/09/24 04/08/24 History
opicapone 50 mg capsule (Ongentys) 50 mg PO HS PARIKINSONS 04/09/24 04/09/24 04/08/24 History
mupirocin 2 % topical ointment 1 applic intranasal BID Infection 04/10/24 04/09/24 Unknown History
sennosides 8.6 mg tablet (senna) 2 tab PO BID Constipation 04/10/24 Unknown History
carbidopa 25 mg-levodopa 100 mg 2 tab PO TID@0800,1200,1800 04/11/24 04/11/24 Unknown History
tablet Parkinson's
carbidopa ER 50 mg-levodopa 200 mg 1 tab PO HS parkinson's 04/11/24 04/11/24 Unknown History
tablet,extended release
gabapentin 100 mg capsule 100 mg PO HS Pain 04/11/24 04/11/24 Unknown History
Active Medications
Generic Name Dose Route Start Last Admin
Trade Name Freq PRN Reason Stop Dose Admin
Acetaminophen 650 mg 04/09/24 18:43 04/10/24 18:07
Acetaminophen 325 Mg Tablet PO 05/07/24 18:42 650 mg
Q6HPRN PRN Administration
mild pain/ fever>100.5F
Aspirin 81 mg 04/10/24 08:00 04/13/24 08:41
Aspirin 81 Mg (Enteric Coated) Tablet PO 05/08/24 07:59 81 mg
DAILY NOLAN Administration
Baclofen 10 mg 04/09/24 20:41 04/13/24 02:22
Baclofen 10 Mg Tablet PO 05/07/24 20:40 10 mg
BID PRN Administration
muscle spasms
Carbidopa/Levodopa 1 tablet 04/11/24 22:00 04/12/24 21:43
Carbidopa (50 Mg)/Levodopa (200 Mg) Extended Release Tablet PO 05/09/24 21:59 1 tablet
HS NOLAN Administration
Carbidopa/Levodopa 2 tablet 04/11/24 13:30 04/13/24 08:41
Carbidopa (25 Mg)/Levodopa (100 Mg) Regular Release Tablet PO 05/09/24 13:29 2 tablet
TID@0800,1200,1800 NOLAN Administration
Cyanocobalamin 1,000 mcg 04/10/24 12:00 04/13/24 08:44
Cyanocobalamin 1,000 Mcg Tablet PO 05/08/24 11:59 1,000 mcg
DAILY NOLAN Administration
Docusate Sodium 100 mg 04/10/24 08:00 04/13/24 08:40
Docusate Sodium 100 Mg Capsule PO 05/08/24 07:59 Not Given
BID NOLAN
Enoxaparin Sodium 40 mg 04/09/24 19:00 04/12/24 17:21
Enoxaparin Sodium 40 Mg/0.4 Ml Syringe SC 05/07/24 18:59 40 mg
QPM NOLAN Administration
Famotidine 20 mg 04/09/24 22:00 04/12/24 21:43
Famotidine 20 Mg Tablet PO 05/07/24 21:59 20 mg
HS NOLAN Administration
Folic Acid 1 mg 04/10/24 12:00 04/13/24 08:41
Folic Acid 1 Mg Tablet PO 05/08/24 11:59 1 mg
DAILY NOLAN Administration
Gabapentin 100 mg 04/11/24 22:00 04/12/24 21:42
Gabapentin 100 Mg Capsule PO 05/09/24 21:59 100 mg
HS NOLAN Administration
Hydromorphone HCl 0.25 mg 04/10/24 11:50
Hydromorphone 0.25 Mg/0.5 Ml Syringe IV 04/24/24 11:49
Q3HPRN PRN
severe pain
Cefazolin Sodium 2 grams in 10 mls @ 120 mls/hr 04/09/24 18:00 04/13/24 02:13
Ancef IV 10 mls
Q8H NOLAN Administration
Clindamycin HCl/Dextrose 600 mg in 50 mls @ 100 mls/hr 04/11/24 18:00 04/13/24 05:43
Cleocin IV 04/14/24 12:29 50 mls
Q6 NOLAN Administration
Opicapone [Ongentys] 0 mg 04/10/24 22:00 04/12/24 21:43
50 Mg Capsule Po Hs PO 05/08/24 21:59 1 mg
HS NOLAN Administration
Rasagiline 1 mg 04/11/24 13:45 04/13/24 08:41
Rasagiline (Azilect) 0.5 Mg Tablet (Non-Form) PO 05/09/24 13:44 1 mg
DAILY NOLAN Administration
Rosuvastatin Calcium 10 mg 04/10/24 08:00 09/11/24 08:41
Rosuvastatin (Crestor) 10 Mg Tablet PO 05/08/24 07:59 10 mg
DAILY NOLAN Administration
Sodium Chloride 0 flush 04/09/24 19:00
Sodium Chloride 0.9% (Flush) Syringe IV 05/07/24 18:59
PER PROTOCOL NOLAN
Physical Exam
-
General: Well Developed, Well Nourished, No Apparent Distress and Comfortable
HEENT: Negative Jaundice
Cardiology: S1 and S2
Pulmonary: Clear
GI: Soft
Musculoskeletal: No Clubbing, No Cyanosis, No Edema and Other (left leg wrapped)
Extremities: No C/C/E
Hematologic / Lymphatic: No Lymphadenopathy
Labs
Lab Results
WBC 21.7 10^3/uL (4.8-10.8) H 04/13/24 05:56
RBC 2.45 10^6/uL (4.70-6.10) L 04/13/24 05:56
Hgb 8.5 g/dL (13.0-18.0) L 04/13/24 05:56
Hct 25.2 % (39.0-52.0) L 04/13/24 05:56
MCV 102.9 fL (80.0-94.0) H 04/13/24 05:56
MCH 34.7 pg (27.0-31.0) H 04/13/24 05:56
MCHC 33.7 g/dL (33.0-37.0) 04/13/24 05:56
RDW 14.8 % (11.5-14.5) H 04/13/24 05:56
Plt Count 97 10^3/uL (130-400) L 04/13/24 05:56
MPV 10.7 fL (7.4-10.4) H 04/13/24 05:56
Abs Immat Gran (auto) 0.1 10^3/uL (0-0.05) H 04/13/24 05:56
Absolute Neuts (auto) 2.7 10^3/uL (1.4-6.5) 04/13/24 05:56
Absolute Lymphs (auto) 18.0 10^3/uL (1.2-3.4) H 04/13/24 05:56
Absolute Monos (auto) 0.8 10^3/uL (0.1-0.6) H 04/13/24 05:56
Absolute Eos (auto) 0.1 10^3/uL (0-0.7) 04/13/24 05:56
Absolute Basos (auto) 0.0 10^3/uL (0-0.2) 04/13/24 05:56
Immature Gran % 0.2 % (0-0.5) 04/13/24 05:56
Neutrophils % 12.6 % (42.2-75.2) L 04/13/24 05:56
Lymphocytes % 83.0 % (20.5-51.1) H 04/13/24 05:56
Monocytes % 3.7 % (1.7-9.3) 04/13/24 05:56
Eosinophils % 0.4 % (0-6) 04/13/24 05:56
Basophils % 0.1 % (0-2) 04/13/24 05:56
Creatinine 0.7 mg/dL (0.7-1.3) 04/13/24 05:56
Vital Signs
Vital Signs
Temp Pulse Resp BP Pulse Ox
98.2 F 75 18 125/70 95
04/13/24 07:40 04/13/24 07:40 04/13/24 07:40 04/13/24 07:40 04/13/24 07:40
[2024-04-13 10:29] VITALS: BP 133/72; PULSE 75
[2024-04-13 10:32] VITALS: BP 133/71; PULSE 75
--- NOTE | 2024-04-13 11:22 | W.PN.HOSP.TC ---
Today's Communication/Plan
-
continue IV Abx per ID
appreciate onc recs
planning SNF DC
Assessment / Plan
Assessment / Plan
Assessment:
Severe sepsis
LLE cellulitis, Group A strep suspected
- CT without abscess or signs of nec fasc
- follow fever curve
- may not be able to follow WBC reliably in setting of known CLL
- elevated LLE at all times
- ID consulting
- continue IV Ancef
- continue IV Clindamycin for toxin inhibition
CoNS bacteremia - likely contaminant per ID
Acute metabolic encephalopathy - due to sepsis. Mental status improving. Continue supportive measures.
Acute thrombocytopenia - likely due to sepsis. Monitor for now.
hx of CLL
- stage 0 per Oncology. Followed by [facility] (Dr. Sagastume). IgG and SPEP sent to determine OP IVIG candidacy
Macrocytic anemia - unknown acuity. Reticulocyte count 1.8%. Hemoglobin noted to be 10.0. Baseline unknown. B12 256 - on oral replacement. Folate normal.
Parkinson's disease - continue home medications.
Essential hypertension - hold antihypertensives given relative hypotension.
Hyperlipidemia - on rosuvastatin.
Recent right total knee arthroplasty
Ambulatory dysfunction - has been using a walker since his recent knee surgery. PT/OT following
Hypokalemia - replete prn
DVT ppx: Lovenox
Code: Full
Anticipated Discharge: > 48 hours
Subjective/Interval History
-
Date of Service: April 13, 2024
reports Leg pain improving
Objective Data
-
Labs:
Laboratory Results
04/13/24
05:56
WBC 21.7 H
Hgb 8.5 L
Hct 25.2 L
Plt Count 97 L
Sodium 142
Potassium 3.4 L
Chloride 107
Carbon Dioxide 24
BUN 25 H
Creatinine 0.7
Glucose 99
Calcium 8.1 L
Vital Signs:
Vital Signs
Temp Pulse Resp BP Pulse Ox
98.2 F 75 18 125/70 95
04/13/24 07:40 04/13/24 07:40 04/13/24 07:40 04/13/24 07:40 04/13/24 07:40
I&O
04/12/24 04/13/24 04/14/24
06:59 06:59 06:59
Intake Total 940 / 940 1240 / 1240
Balance 940 / 940 1240 / 1240
Physical Exam
-
General: No Apparent Distress
HEENT: Normocephalic
Cardiac: Regular Rhythm and S1/S2
GI: Soft
Musculoskeletal: Other (LLE decreased edema. Erythema receding from medial thigh. + serous drainage.)
Neuro: AO x 3
Psych: Calm
Data Reviewed
-
Total Time Spent with Patient (in minutes): 41
Labs: Labs Reviewed by me
--- NOTE | 2024-04-13 13:04 | W.PN.ID1 ---
Date of Service
Date of Service: April 13, 2024
Today's Communication
Continue cefazolin/clindamycin.
Assessment / Plan
# Severe LLE non-purulent cellulitis slowing improving
# Fever resolved
# Leukocytosis in setting of CLL, trending up.
- Suspect Group a streptococcus.
- Bcx 1 of 2 CoNS=contaminant.
-Continue IV cefazolin.
-Continue short course clindamycin 600 mg IV every 6 hours as toxin inhibitor (to complete 3 days).
-Per Hem/onc, WBC may not be reliable to monitor abx response.
-Follow clinically.
# Conditions prior to admission
Parkinson's disease
Hypertension
CLL
HLD
Overactive bladder
Osteoarthritis
Lumbar degenerative disc disease
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
Left partial knee replacement
Chief Complaint
-: Leukocytosis and Cellulitis
Subjective / Review of Systems
at bedside. Confusion resolved.
Vital Signs / Physical Exam
Vital Signs
Vital Signs
Temp Pulse Resp BP Pulse Ox
98.2 F 75 18 125/70 95
04/13/24 07:40 04/13/24 07:40 04/13/24 07:40 04/13/24 07:40 04/13/24 10:00
Physical Exam
Constitutional: No Acute Distress and Comfortable
Gastrointestinal: Soft, Non Tender, Non Distended and Normal Bowel Sounds
Extremities: Other (LLE erythema darker, decreased warmth, decreased edema. + residual blister medial leg. )
Neurological: AO x 3
Objective Data
Lab Data
Lab Results
04/13/24 05:56
04/13/24 05:56
ESR Cancelled 04/09/24 14:04
PT 14.6 Sec (11.4-14.6) 04/09/24 14:42
INR 1.16 04/09/24 14:42
APTT 28.5 Sec (23.4-35.0) 04/09/24 14:42
Estimated Creat Clear 106 ml/min 04/13/24 05:56
Lactic Acid 1.0 mmol/L (0.7-2.0) 04/09/24 17:14
Total Bilirubin 1.6 mg/dl (0.2-1.3) H 04/11/24 05:42
AST 16 U/L (17-59) L 04/11/24 05:42
ALT < 10 U/L (0-50) 04/11/24 05:42
Alkaline Phosphatase 54 U/L (38-126) 04/11/24 05:42
C-Reactive Protein Cancelled 04/09/24 14:04
Most recent labs reviewed.
Micro Results:
04/09/24 17:14 Blood Culture - Preliminary
Blood/Venous No Growth in 72 hours- Final report to follow
04/09/24 17:14 Blood Culture - Preliminary
Blood/Venous Coagulase neg. staphylococcus
Additional testing on request
Gram Stain - Preliminary
04/10/24 CT LE: Probable diffuse left lower extremity cellulitis. No abscess. Intact osseous structures.
--- NOTE | 2024-04-13 15:12 | CM ---
Reviewed the chart notes and spoke with the patient and his spouse at the bedside. Reviewed PT's recommendation of SNF. Patient and spouse want to wait and see if patient will be strong enough to go home with possible outpatient PT vs in-home PT.
CM continues to be available to patient/family and is monitoring medical plan for needs at discharge.
Plan: Discharge plans will depend on the patient's progress.
[2024-04-13] MEDS: REFRESH EYE DROPS (PF) 1 DROPS OPHTH (15:22)
[2024-04-13 16:57] VITALS: BP 119/61
[2024-04-13] MEDS: LOVENOX 40 MG SC (18:10)
[2024-04-13] MEDS: PEPCID 20 MG PO (21:54)
[2024-04-13] MEDS: SINEMET CR 50/200 (EXTENDED RELEASE) 1 TABLET PO (21:54)
[2024-04-13] MEDS: NEURONTIN 100 MG PO (21:54)
[2024-04-13] MEDS: NON-FORMULARY ITEM 1 MG PO (21:55)
[2024-04-13 23:25] VITALS: BP 122/64
[2024-04-14] MEDS: CLEOCIN 50 IV ×3 (00:12→12:45)
[2024-04-14] MEDS: ANCEF 10 IV ×2 (02:04→09:55)
[2024-04-14 06:30] LABS: Hematocrit 25.3 % (39.0-52.0); Hemoglobin 8.3 g/dL (13.0-18.0); Mean Corp Hgb Conc. 32.8 g/dL (33.0-37.0); Mean Corpuscular Hgb 33.9 pg (27.0-31.0); Mean Corpuscular Volume 103.3 fL (80.0-94.0); Mean Platelet Volume 10.5 fL (7.4-10.4); Platelet Count 111 10^3/uL (130-400); Red Blood Cell Count 2.45 10^6/uL (4.70-6.10); Red Cell Dist. Width 15.1 % (11.5-14.5); White Blood Cell Count 24.3 10^3/uL (4.8-10.8)
[2024-04-14 06:54] LABS: Blood Urea Nitrogen 25 mg/dl (9-20); Calcium 8.1 mg/dl (8.4-10.2); Carbon Dioxide 25 mmol/L (22-30); Chloride 106 mmol/L (98-107); Estimated Creatinine Clearance 124 ml/min; Glucose 99 mg/dl (70-99); Potassium 3.4 mmol/L (3.5-5.1); Sodium 141 mmol/L (135-145); eGFR > 60.00
[2024-04-14 07:25] LABS: % Basophils 0.2 % (0-2); % Eosinophils 0.6 % (0-6); % Immature Granulocytes 0.2 % (0-0.5); % Lymphocytes 83.9 % (20.5-51.1); % Monocytes 2.3 % (1.7-9.3); % Neutrophils 12.8 % (42.2-75.2); Absolute Eosinophils 0.1 10^3/uL (0-0.7); Absolute Immature Granulocytes 0.1 10^3/uL (0-0.05); Absolute Lymphocytes 20.4 10^3/uL (1.2-3.4); Absolute Monocytes 0.6 10^3/uL (0.1-0.6); Absolute Neutrophils 3.1 10^3/uL (1.4-6.5); Nucleated Red Blood Cells % 0 % (-)
[2024-04-14 07:44] VITALS: BP 121/70
--- NOTE | 2024-04-14 09:34 | W.PN.ONC2 ---
Today's Communication / Plan
-
daily CBC
check hemolysis panel
f/u IgG, SPEP
Impression
Impression
LLE cellulitis
Stage 0 CLL
Anemia of inflammation
Parkinson's disease
Plan
Plan
ABX Tx per ID with clinical monitoring. Not sure we can use WBC reliably to monitor his response to Abx therapy.
CLL is known to patient. Likely partially the cause of the leukocytosis.
May be a candidate for outpt IVIG if hypogammaglobulinemia. f/u IgG and SPEP.
Subjective/Objective
Chief Complaint
no new complaints
Hgb 8.3g/dL
Subjective
afebrile, no hypoxia or hypotension
Vital Signs:
Vital Signs
Temp Pulse Resp BP Pulse Ox
97.6 F 73 16 121/70 97
04/14/24 07:44 04/14/24 07:44 04/14/24 07:44 04/14/24 07:44 04/14/24 07:44
Lab Results:
Laboratory Data
WBC 24.3 10^3/uL (4.8-10.8) H 04/14/24 05:48
Hgb 8.3 g/dL (13.0-18.0) L 04/14/24 05:48
Plt Count 111 10^3/uL (130-400) L 04/14/24 05:48
PT 14.6 Sec (11.4-14.6) 04/09/24 14:42
INR 1.16 04/09/24 14:42
APTT 28.5 Sec (23.4-35.0) 04/09/24 14:42
eGFR > 60.00 04/14/24 05:48
Physical Exam
General: Well Developed, Well Nourished, No Apparent Distress and Comfortable
HEENT: Negative Jaundice
Cardiology: S1 and S2
Pulmonary: Clear
GI: Soft
Extremities: LLE cellulitis wrapped in dression
Review of Systems
Review of Systems
ROS notable for subjective, otherwise negative
[2024-04-14] MEDS: COLACE PO ×2 (09:40→21:10)
[2024-04-14] MEDS: RASAGILINE MESYLATE 1 MG PO (09:53)
[2024-04-14] MEDS: ZESTRIL 5 MG PO (09:54)
[2024-04-14] MEDS: VITAMIN B-12 1000 MCG PO (09:54)
[2024-04-14] MEDS: SINEMET 25-100 2 TABLET PO ×3 (09:54→17:14)
[2024-04-14] MEDS: ASPIR LOW (ENTERIC COATED) 81 MG PO (09:54)
[2024-04-14] MEDS: CRESTOR 10 MG PO (09:54)
[2024-04-14] MEDS: FOLVITE 1 MG PO (09:55)
[2024-04-14] MEDS: REFRESH EYE DROPS (PF) 1 DROPS OPHTH (11:08)
--- NOTE | 2024-04-14 12:01 | W.PN.ID1 ---
Date of Service
Date of Service: April 14, 2024
Today's Communication
Replace cefazolin with ceftriaxone.
Continue to follow clinically.
Assessment / Plan
# Severe LLE non-purulent cellulitis slowly improving
# Fever resolved
# Leukocytosis in setting of CLL, continues to trend up
- Suspect Group a streptococcus.
- Bcx 1 of 2 CoNS=contaminant.
-Change IV cefazolin to ceftriaxone 2g IV q24.
-Completing short course clindamycin 600 mg IV every 6 hours as toxin inhibitor (day 3 of 3 day).
-Per Hem/onc, WBC may not be reliable to monitor abx response.
-Continue to follow clinically.
-Not ready for discharge.
# Conditions prior to admission
Parkinson's disease
Hypertension
CLL
HLD
Overactive bladder
Osteoarthritis
Lumbar degenerative disc disease
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
Left partial knee replacement
Chief Complaint
-: Leukocytosis and Cellulitis
Subjective / Review of Systems
Decreased leg pain.
Vital Signs / Physical Exam
Vital Signs
Vital Signs
Temp Pulse Resp BP Pulse Ox
97.6 F 73 16 121/70 97
04/14/24 07:44 04/14/24 09:54 04/14/24 07:44 04/14/24 09:54 04/14/24 07:44
Physical Exam
Constitutional: No Acute Distress and Comfortable
Pulmonary: Clear
Gastrointestinal: Non Tender, Non Distended and Normal Bowel Sounds
Extremities: Other (LLE 2+, erythema dark red, no extension outside marked line. + serous drainage from residual blister. )
Objective Data
Lab Data
Lab Results
04/14/24 05:48
04/14/24 05:48
ESR Cancelled 04/09/24 14:04
PT 14.6 Sec (11.4-14.6) 04/09/24 14:42
INR 1.16 04/09/24 14:42
APTT 28.5 Sec (23.4-35.0) 04/09/24 14:42
Estimated Creat Clear 124 ml/min 04/14/24 05:48
Lactic Acid 1.0 mmol/L (0.7-2.0) 04/09/24 17:14
Total Bilirubin 1.6 mg/dl (0.2-1.3) H 04/11/24 05:42
AST 16 U/L (17-59) L 04/11/24 05:42
ALT < 10 U/L (0-50) 04/11/24 05:42
Alkaline Phosphatase 54 U/L (38-126) 04/11/24 05:42
C-Reactive Protein Cancelled 04/09/24 14:04
Most recent labs reviewed.
Micro Results:
04/09/24 17:14 Blood Culture - Preliminary
Blood/Venous No Growth in 4 days- Final report to follow
04/09/24 17:14 Blood Culture - Preliminary
Blood/Venous Coagulase neg. staphylococcus
Additional testing on request
Gram Stain - Preliminary
04/10/24 CT LE: Probable diffuse left lower extremity cellulitis. No abscess. Intact osseous structures.
[2024-04-14] MEDS: STERILE WATER FOR INJECTION 20 ML IV (14:17)
[2024-04-14] MEDS: ROCEPHIN 2000 MG IV (14:17)
--- NOTE | 2024-04-14 15:02 | W.PN.HOSP.TC ---
Today's Communication/Plan
-
continue IV abx per ID
Assessment / Plan
Assessment / Plan
Assessment:
Severe sepsis
LLE cellulitis, Group A strep suspected
- CT without abscess or signs of nec fasc
- follow fever curve
- may not be able to follow WBC reliably in setting of known CLL
- elevated LLE at all times
- ID consulting
- continue IV Rocephin
- s/p short course IV Clindamycin for toxin inhibition
CoNS bacteremia - likely contaminant per ID
Acute metabolic encephalopathy - due to sepsis. Mental status improving. Continue supportive measures.
Acute thrombocytopenia - likely due to sepsis. Monitor for now.
hx of CLL
- stage 0 per Oncology. Followed by [facility] (Dr. Sagastume). IgG and SPEP sent to determine OP IVIG candidacy.
Macrocytic anemia - unknown acuity. Reticulocyte count 1.8%. Hemoglobin noted to be 10.0. Baseline unknown. B12 256 - on oral replacement. Folate normal. Hemolysis panel pending.
Parkinson's disease - continue home medications.
Essential hypertension - continue Lisinopril as 5mg daily (home dose 10mg daily).
Hyperlipidemia - on rosuvastatin.
Recent right total knee arthroplasty
Ambulatory dysfunction - has been using a walker since his recent knee surgery. PT/OT following
Hypokalemia - replete prn
DVT ppx: Lovenox
Code: Full
Anticipated Discharge: 24 - 48 hours
Subjective/Interval History
-
Date of Service: April 14, 2024
leg pain improving
Objective Data
-
Labs:
Laboratory Results
04/14/24
05:48
WBC 24.3 H
Hgb 8.3 L
Hct 25.3 L
Plt Count 111 L
Sodium 141
Potassium 3.4 L
Chloride 106
Carbon Dioxide 25
BUN 25 H
Creatinine 0.6 L
Glucose 99
Calcium 8.1 L
Vital Signs:
Vital Signs
Temp Pulse Resp BP Pulse Ox
97.6 F 73 16 121/70 97
04/14/24 07:44 04/14/24 09:54 04/14/24 07:44 04/14/24 09:54 04/14/24 07:44
I&O
04/13/24 04/14/24 04/15/24
06:59 06:59 06:59
Intake Total 1240 / 1240 900 / 900
Balance 1240 / 1240 900 / 900
Physical Exam
-
General: No Apparent Distress
HEENT: Normocephalic and Atraumatic
Respiratory: Negative Wheezes
Cardiac: Regular Rhythm
Genito-urinary: No Costovertebral Tender
Musculoskeletal: Other (Edema, improving, erythema)
Neuro: AO x 3
Hematologic / Lymphatic: No Lymphadenopathy
Psych: Calm
Data Reviewed
-
Total Time Spent with Patient (in minutes): 42
Labs: Labs Reviewed by me
--- NOTE | 2024-04-14 15:12 | WOUNDNOTE ---
GLUTEAL CLEFT (VERTICAL)
--- NOTE | 2024-04-14 15:14 | CM ---
Reviewed the chart notes and spoke with the patient and spouse at the bedside. The patient is in agreement with SNF/rehab. Patient requesting referral to be sent to [facility] [place]. CM continues to be available to patient/family and is monitoring
medical plan for needs at discharge.
Plan: Discharge to SNF/rehab once bed is found.
--- NOTE | 2024-04-14 15:14 | WOUNDNOTE ---
[facility] RN note: FAVIAN Barraza requested assessment of wound in gluteal cleft not previously noted. Met with patient and explained reason for assessment. Patient has stage 2 of gluteal cleft. Patient stated that he was aware that he had a wound prior to
admission as he experienced intermittent bleeding from the site. He also stated ' I know I was just sitting too much when I was home and that's when it happened.' A thin layer of zinc ointment was applied over open area. Spoke to patient and
about pressure redistribution when at home. Patient is on a [employer] and has an air cushion on chair. Patient needs some assistance with turning. Patient reports 'very good appetite.' FAVIAN Barraza given update. Will continue to follow as
needed.
[2024-04-14 16:05] VITALS: BP 109/62
[2024-04-14] MEDS: LOVENOX 40 MG SC (17:13)
[2024-04-14] MEDS: SINEMET CR 50/200 (EXTENDED RELEASE) 1 TABLET PO (21:09)
[2024-04-14] MEDS: NON-FORMULARY ITEM 1 MG PO (21:10)
[2024-04-14] MEDS: PEPCID 20 MG PO (21:10)
[2024-04-14] MEDS: NEURONTIN 100 MG PO (21:10)
[2024-04-14 23:26] VITALS: BP 115/69
[2024-04-15] MEDS: LIORESAL 10 MG PO (00:27)
[2024-04-15 06:57] LABS: Hematocrit 25.3 % (39.0-52.0); Hemoglobin 8.4 g/dL (13.0-18.0); Mean Corp Hgb Conc. 33.2 g/dL (33.0-37.0); Mean Corpuscular Hgb 35.4 pg (27.0-31.0); Mean Corpuscular Volume 106.8 fL (80.0-94.0); Mean Platelet Volume 10.2 fL (7.4-10.4); Platelet Count 164 10^3/uL (130-400); Red Blood Cell Count 2.37 10^6/uL (4.70-6.10); Red Cell Dist. Width 14.9 % (11.5-14.5); White Blood Cell Count 26.2 10^3/uL (4.8-10.8)
[2024-04-15 07:07] LABS: Blood Urea Nitrogen 23 mg/dl (9-20); Calcium 8.2 mg/dl (8.4-10.2); Carbon Dioxide 26 mmol/L (22-30); Chloride 105 mmol/L (98-107); Estimated Creatinine Clearance 124 ml/min; Glucose 96 mg/dl (70-99); LDH 164 U/L (120-246); Potassium 3.8 mmol/L (3.5-5.1); Sodium 139 mmol/L (135-145); eGFR > 60.00
[2024-04-15 07:24] LABS: Glucose - Point of Care 101 mg/dl (70-99)
[2024-04-15 07:45] VITALS: BP 116/64
[2024-04-15 08:21] LABS: % Basophils 0.1 % (0-2); % Eosinophils 0.4 % (0-6); % Immature Granulocytes 0.2 % (0-0.5); % Lymphocytes 81.5 % (20.5-51.1); % Monocytes 4.9 % (1.7-9.3); % Neutrophils 12.9 % (42.2-75.2); Absolute Eosinophils 0.1 10^3/uL (0-0.7); Absolute Immature Granulocytes 0.1 10^3/uL (0-0.05); Absolute Lymphocytes 21.3 10^3/uL (1.2-3.4); Absolute Monocytes 1.3 10^3/uL (0.1-0.6); Absolute Neutrophils 3.4 10^3/uL (1.4-6.5); Nucleated Red Blood Cells % 0 % (-); Reticulocyte Count 0.9 % (0.4-2.8)
[2024-04-15] MEDS: COLACE PO ×2 (08:21→20:03)
[2024-04-15] MEDS: CRESTOR 10 MG PO (08:21)
[2024-04-15] MEDS: FOLVITE 1 MG PO (08:21)
[2024-04-15] MEDS: ASPIR LOW (ENTERIC COATED) 81 MG PO (08:21)
[2024-04-15] MEDS: RASAGILINE MESYLATE 1 MG PO (08:22)
[2024-04-15] MEDS: VITAMIN B-12 1000 MCG PO (08:22)
[2024-04-15] MEDS: SINEMET 25-100 2 TABLET PO ×3 (08:22→17:13)
[2024-04-15] MEDS: ZESTRIL PO (08:25)
--- NOTE | 2024-04-15 08:38 | W.PN.ONC2 ---
Today's Communication / Plan
-
daily CBC
f/u IgG, SPEP, haptoglobin
Impression
Impression
LLE cellulitis
Stage 0 CLL
Anemia of inflammation
Parkinson's disease
Plan
Plan
ABX Tx per ID with clinical monitoring. Not sure we can use WBC reliably to monitor his response to Abx therapy.
CLL is known to patient. Likely partially the cause of the leukocytosis.
Hemolysis less likely etiology of anemia with normal retic, LDH, and negative, NGUYEN, haptoglobin pending
May be a candidate for outpt IVIG if hypogammaglobulinemia. f/u IgG and SPEP.
Subjective/Objective
Chief Complaint
no new complaints
Subjective
afebrile, no hypoxia or hypotension
denies pain
Vital Signs:
Vital Signs
Temp Pulse Resp BP Pulse Ox
97.9 F 76 18 115/69 95
04/14/24 23:26 04/14/24 23:26 04/14/24 23:26 04/14/24 23:26 04/14/24 23:26
Lab Results:
Laboratory Data
WBC 26.2 10^3/uL (4.8-10.8) H 04/15/24 06:04
Hgb 8.4 g/dL (13.0-18.0) L 04/15/24 06:04
Plt Count 164 10^3/uL (130-400) D 04/15/24 06:04
PT 14.6 Sec (11.4-14.6) 04/09/24 14:42
INR 1.16 04/09/24 14:42
APTT 28.5 Sec (23.4-35.0) 04/09/24 14:42
eGFR > 60.00 04/15/24 06:04
Physical Exam
General: Well Developed, Well Nourished, No Apparent Distress and Comfortable
HEENT: Negative Jaundice
Cardiology: S1 and S2
Pulmonary: Clear
GI: Soft
Extremities: LLE cellulitis, open to air
Review of Systems
Review of Systems
ROS notable for subjective, otherwise negative
Orders
Orders
Orders From Last 24 Hours
04/15/24 06:04
NGUYEN Polyspecific GEL IN AM
Haptoglobin [S] IN AM
LDH IN AM
Reticulocyte Count IN AM
--- NOTE | 2024-04-15 09:24 | W.PN.HOSP.TC ---
Today's Communication/Plan
-
continue IV abx per ID
DC planning to a SNF
Assessment / Plan
Assessment / Plan
Assessment:
Severe sepsis
LLE cellulitis, Group A strep suspected
- CT without abscess or signs of nec fasc
- follow fever curve
- may not be able to follow WBC reliably in setting of known CLL
- elevated LLE at all times; counselled patient several times. d/w RN as well
- continue IV Rocephin per ID
- s/p short course IV Clindamycin for toxin inhibition
CoNS bacteremia - likely contaminant per ID
Acute metabolic encephalopathy - due to sepsis. Mental status improving. Continue supportive measures.
Acute thrombocytopenia - likely due to sepsis. improving
hx of CLL
- stage 0 per Oncology. Followed by [facility] (Dr. Sagastume). IgG and SPEP sent to determine OP IVIG candidacy.
Macrocytic anemia - unknown acuity. Reticulocyte count 1.8%. Hemoglobin noted to be 10.0. Baseline unknown. B12 256 - on oral replacement. Folate normal. Hemolysis panel pending.
Parkinson's disease - continue home medications.
Essential hypertension - continue Lisinopril as 5mg daily (home dose 10mg daily).
Hyperlipidemia - on rosuvastatin.
Recent right total knee arthroplasty
Ambulatory dysfunction - has been using a walker since his recent knee surgery. PT/OT following
Hypokalemia - replete prn
DVT ppx: Lovenox
Code: Full
Anticipated Discharge: > 48 hours
Subjective/Interval History
-
Date of Service: April 15, 2024
denies any new complaints at present
leg pain improving, blister has now popped
Objective Data
-
Labs:
Laboratory Results
04/15/24
06:04
WBC 26.2 H
Hgb 8.4 L
Hct 25.3 L
Plt Count 164 D
Sodium 139
Potassium 3.8
Chloride 105
Carbon Dioxide 26
BUN 23 H
Creatinine 0.6 L
Glucose 96
Calcium 8.2 L
Vital Signs:
Vital Signs
Temp Pulse Resp BP Pulse Ox
97.9 F 76 18 115/69 95
04/14/24 23:26 04/14/24 23:26 04/14/24 23:26 04/14/24 23:26 04/14/24 23:26
I&O
04/14/24 04/15/24 04/16/24
06:59 06:59 06:59
Intake Total 900 / 900 1260 / 1260
Balance 900 / 900 1260 / 1260
Physical Exam
-
General: No Apparent Distress
HEENT: Normocephalic
Respiratory: Negative Wheezes
Cardiac: Regular Rhythm and S1/S2
GI: Soft
Musculoskeletal: Other (decreased edema 1-2+, dependant rubor)
Neuro: AO x 3
Hematologic / Lymphatic: No Lymphadenopathy
Psych: Calm
Data Reviewed
-
Total Time Spent with Patient (in minutes): 43
Labs: Labs Reviewed by me
[2024-04-15 09:59] VITALS: BP 112/63
[2024-04-15 10:03] VITALS: BP 112/63; PULSE 80
[2024-04-15 10:41] LABS: ALT (SGPT) 55 U/L (0-50); AST (SGOT) 83 U/L (17-59); Albumin 2.7 g/dl (3.5-5.0); Alkaline Phosphatase 67 U/L (38-126); Direct Bilirubin 0.2 mg/dl (0.0-0.4); Total Bilirubin 0.6 mg/dl (0.2-1.3); Total Protein 4.7 g/dl (6.3-8.2)
[2024-04-15] MEDS: REFRESH EYE DROPS (PF) 1 DROPS OPHTH (10:57)
--- NOTE | 2024-04-15 11:37 | PTCARENOTE ---
Pt refsed morning dose of lisinopril due to parameters he follows at home. BP 116/64. Doctor Asim notified.
[2024-04-15] MEDS: STERILE WATER FOR INJECTION 20 ML IV (13:10)
[2024-04-15] MEDS: ROCEPHIN 2000 MG IV (13:10)
--- NOTE | 2024-04-15 13:27 | W.PN.ID1 ---
Date of Service
Date of Service: April 15, 2024
Today's Communication
Continue ceftriaxone.
Assessment / Plan
# Severe LLE non-purulent cellulitis slowly improving -> bright erythema now dark purple.
# Fever resolved
# Leukocytosis (lymphocytic) in setting of CLL, continues to trend up. %neutrophils trending down.
#- Bcx 1 of 2 CoNS=contaminant.
- Still suspect Group A streptococcus.
- s/p 3 days clinda 600mg IV q6.
-s/p 4 days cefazolin
- Switched to ceftriaxone 2g IV q24 (d2)
-Per Hem/onc, WBC may not be reliable to monitor abx response.
-Continue compression.
-Continue to follow clinically.
-Not ready for discharge.
# Conditions prior to admission
Parkinson's disease
Hypertension
CLL
HLD
Overactive bladder
Osteoarthritis
Lumbar degenerative disc disease
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
Left partial knee replacement
Chief Complaint
-: Leukocytosis and Cellulitis
Subjective / Review of Systems
Leg pain resolving/minimal
Vital Signs / Physical Exam
Vital Signs
Vital Signs
Temp Pulse Resp BP Pulse Ox
98.0 F 73 16 112/63 94
04/15/24 07:45 04/15/24 07:45 04/15/24 07:45 04/15/24 09:59 04/15/24 07:45
Physical Exam
Constitutional: No Acute Distress and Comfortable
Pulmonary: Clear
Gastrointestinal: Soft, Non Tender and Non Distended
Extremities: Other (LLE: edema much decreased; serous drainage now minimal; bright erythema resolved, now dark purplish on giron, medial leg/calf. Thigh erythema resolved. )
Neurological: AO x 3
Objective Data
Lab Data
Lab Results
04/15/24 06:04
04/15/24 06:04
ESR Cancelled 04/09/24 14:04
PT 14.6 Sec (11.4-14.6) 04/09/24 14:42
INR 1.16 04/09/24 14:42
APTT 28.5 Sec (23.4-35.0) 04/09/24 14:42
Estimated Creat Clear 124 ml/min 04/15/24 06:04
Lactic Acid 1.0 mmol/L (0.7-2.0) 04/09/24 17:14
Total Bilirubin 0.6 mg/dl (0.2-1.3) 04/15/24 06:04
AST 83 U/L (17-59) H 04/15/24 06:04
ALT 55 U/L (0-50) H 04/15/24 06:04
Alkaline Phosphatase 67 U/L (38-126) 04/15/24 06:04
C-Reactive Protein Cancelled 04/09/24 14:04
Most recent labs reviewed.
Micro Results:
04/09/24 17:14 Blood Culture - Final
Blood/Venous No Growth - Final Report
04/09/24 17:14 Blood Culture - Preliminary
Blood/Venous Coagulase neg. staphylococcus
Additional testing on request
Gram Stain - Preliminary
04/10/24 CT LE: Probable diffuse left lower extremity cellulitis. No abscess. Intact osseous structures.
--- NOTE | 2024-04-15 15:48 | CM ---
Reviewed the chart notes. CM continues to be available to patient/family and is monitoring medical plan for needs at discharge.
Plan: Discharge to SNF when medically stable and bed found. [facility] interested, but based on bed availability. No response from [facility].
[2024-04-15 16:00] VITALS: BP 116/64
--- NOTE | 2024-04-15 16:45 | PN.CDI ---
CDI
- -
CDI:
Physician Documentation Request
Admit Date: 04/09/24 17:21
Dear Doctor Asim,
Please review the following and provide your response in the progress notes.
Clinical Indicators:
Pt admitted with Severe sepsis 2/2 LLE cellulitis on IV abx
Documented per [facility] note 04/14 ,' Met with patient and explained reason for assessment. Patient has stage 2 of gluteal cleft. Patient stated that he was aware that he had a wound prior to admission as he experienced intermittent bleeding from the
site.....He also stated ' I know I was just sitting too much when I was home and that's when it happened.' A thin layer of zinc ointment was applied over open area. Spoke to patient and about pressure redistribution when at home...'
Nursing Wound care panel 04/14, ' Pressure injury stage 2 pressure related ...'
Physician documentation of the type and location of wounds is required for compliant documentation. Based on the above clinical findings and your assessment, please provide the following in your progress note:
1. Location of the ulcer/wound, including laterality.
2. Type (etiology) of ulcer/wound:
- Pressure (decubitus) ulcer
- Non-pressure ulcer
- Other
Use of terms such as suspected, likely, concern for, or probable (associated with a specific diagnosis that is being evaluated, monitored, or treated as if it exists) are acceptable and can be coded in the inpatient setting, when documented at the
time of discharge.
Thank you,
Dory Jean-Baptiste RN
CDI Specialist
[employer]
Please use your independent medical judgment in providing your response.
*Source: National Pressure Ulcer Advisory Panel (NPUAP)
[2024-04-15] MEDS: LOVENOX 40 MG SC (17:13)
[2024-04-15] MEDS: PEPCID 20 MG PO (21:19)
[2024-04-15] MEDS: SINEMET CR 50/200 (EXTENDED RELEASE) 1 TABLET PO (21:19)
[2024-04-15] MEDS: NEURONTIN 100 MG PO (21:19)
[2024-04-15] MEDS: NON-FORMULARY ITEM 50 MG PO (21:20)
[2024-04-15 23:55] VITALS: BP 120/69
[2024-04-16 07:40] VITALS: BP 136/73
[2024-04-16 08:03] LABS: Hematocrit 25.9 % (39.0-52.0); Hemoglobin 8.4 g/dL (13.0-18.0); Mean Corp Hgb Conc. 32.4 g/dL (33.0-37.0); Mean Corpuscular Hgb 34.3 pg (27.0-31.0); Mean Corpuscular Volume 105.7 fL (80.0-94.0); Mean Platelet Volume 9.7 fL (7.4-10.4); Platelet Count 212 10^3/uL (130-400); Red Blood Cell Count 2.45 10^6/uL (4.70-6.10); Red Cell Dist. Width 14.9 % (11.5-14.5); White Blood Cell Count 27.5 10^3/uL (4.8-10.8)
[2024-04-16 08:10] LABS: Blood Urea Nitrogen 20 mg/dl (9-20); Calcium 8.3 mg/dl (8.4-10.2); Carbon Dioxide 26 mmol/L (22-30); Chloride 103 mmol/L (98-107); Estimated Creatinine Clearance 106 ml/min; Glucose 90 mg/dl (70-99); Potassium 4.1 mmol/L (3.5-5.1); Sodium 138 mmol/L (135-145); eGFR > 60.00
[2024-04-16 08:57] LABS: % Basophils 0.2 % (0-2); % Eosinophils 0.3 % (0-6); % Immature Granulocytes 0.3 % (0-0.5); % Lymphocytes 84.8 % (20.5-51.1); % Monocytes 3.3 % (1.7-9.3); % Neutrophils 11.1 % (42.2-75.2); Absolute Basophils 0.1 10^3/uL (0-0.2); Absolute Eosinophils 0.1 10^3/uL (0-0.7); Absolute Immature Granulocytes 0.1 10^3/uL (0-0.05); Absolute Lymphocytes 23.3 10^3/uL (1.2-3.4); Absolute Monocytes 0.9 10^3/uL (0.1-0.6); Absolute Neutrophils 3.1 10^3/uL (1.4-6.5); Nucleated Red Blood Cells % 0 % (-)
--- NOTE | 2024-04-16 09:00 | W.PN.HOSP.TC ---
Today's Communication/Plan
-
continue IV Abx per ID
continue DONNA wraps and encouraging elevation of LLE
Assessment / Plan
Assessment / Plan
Assessment:
Severe sepsis
LLE cellulitis, Group A strep suspected
- CT without abscess or signs of nec fasc
- follow fever curve
- may not be able to follow WBC reliably in setting of known CLL
- elevated LLE at all times; counselled patient several times. d/w RN as well
- continue IV Rocephin per ID
- s/p short course IV Clindamycin for toxin inhibition
CoNS bacteremia - likely contaminant per ID
Acute metabolic encephalopathy - due to sepsis. Mental status improving. Continue supportive measures.
Acute thrombocytopenia - likely due to sepsis. improving
hx of CLL
- stage 0 per Oncology. Followed by [facility] (Dr. Sagastume). IgG and SPEP sent to determine OP IVIG candidacy.
Macrocytic anemia - unknown acuity. Reticulocyte count 1.8%. Hemoglobin noted to be 10.0. Baseline unknown. B12 256 - on oral replacement. Folate normal. Hemolysis panel pending.
Parkinson's disease - continue home medications.
Essential hypertension - continue Lisinopril as 5mg daily (home dose 10mg daily).
Hyperlipidemia - on rosuvastatin.
Recent right total knee arthroplasty
Ambulatory dysfunction - has been using a walker since his recent knee surgery. PT/OT following
Hypokalemia - replete prn
stage 2 of gluteal cleft/PI
- POA
- follow wound care recs
DVT ppx: Lovenox
Code: Full
Dispo: SNF when stable
Anticipated Discharge: > 48 hours
Subjective/Interval History
-
Date of Service: April 16, 2024
reports some mild increase in leg edema
no fevers
Objective Data
-
Labs:
Laboratory Results
04/16/24
07:06
WBC 27.5 H
Hgb 8.4 L
Hct 25.9 L
Plt Count 212 D
Sodium 138
Potassium 4.1
Chloride 103
Carbon Dioxide 26
BUN 20
Creatinine 0.7
Glucose 90
Calcium 8.3 L
Vital Signs:
Vital Signs
Temp Pulse Resp BP Pulse Ox
98.2 F 74 16 120/69 93
04/15/24 23:55 04/15/24 23:55 04/15/24 23:55 04/15/24 23:55 04/15/24 23:55
I&O
04/15/24 04/16/24 04/17/24
06:59 06:59 06:59
Intake Total 1260 / 1260 540 / 540
Balance 1260 / 1260 540 / 540
Physical Exam
-
General: No Apparent Distress
HEENT: Normocephalic and Atraumatic
Respiratory: Negative Wheezes
Cardiac: Regular Rhythm
GI: Soft
Genito-urinary: No Costovertebral Tender
Neuro: AO x 3
Psych: Calm
Data Reviewed
-
Total Time Spent with Patient (in minutes): 42
Labs: Labs Reviewed by me
[2024-04-16] MEDS: SINEMET 25-100 2 TABLET PO ×3 (09:27→17:03)
[2024-04-16] MEDS: FOLVITE 1 MG PO (09:28)
[2024-04-16] MEDS: ZESTRIL 5 MG PO (09:28)
[2024-04-16] MEDS: COLACE PO ×2 (09:28→21:05)
[2024-04-16] MEDS: VITAMIN B-12 1000 MCG PO (09:28)
[2024-04-16] MEDS: RASAGILINE MESYLATE 1 MG PO (09:28)
[2024-04-16] MEDS: CRESTOR 10 MG PO (09:28)
[2024-04-16] MEDS: ASPIR LOW (ENTERIC COATED) 81 MG PO (09:28)
--- NOTE | 2024-04-16 11:39 | W.PN.ID1 ---
Date of Service
Date of Service: April 16, 2024
Today's Communication
- continue ceftriaxone 2g IV q24 for today, tomorrow will switch to amoxicillin 1 gm IV q8 hrs for 5 more days
Assessment / Plan
# Severe LLE non-purulent cellulitis slowly improving -> bright erythema now dark purple.
# Fever resolved
# Leukocytosis (lymphocytic) in setting of CLL, continues to trend up. %neutrophils trending down.
brings in records with baseline WBC 27
#- Bcx 1 of 2 CoNS=contaminant.
- Still suspect Group A streptococcus.
- continue ceftriaxone 2g IV q24 for today, tomorrow will switch to amoxicillin 1 gm IV q8 hrs for 5 more days
- Per Hem/onc, WBC may not be reliable to monitor abx response.
-Continue compression, elevation as tolerated
-Continue to follow clinically.
# Conditions prior to admission
Parkinson's disease
Hypertension
CLL
HLD
Overactive bladder
Osteoarthritis
Lumbar degenerative disc disease
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
Left partial knee replacement
Chief Complaint
-: Leukocytosis and Cellulitis
Subjective / Review of Systems
afebrile
BP stable
pain in the heel and where dependant vesicle ruptured on posterior calf
- subcuticular bleeding noted - no further erythema, warmth or tenderness
found records with baseline WBC count around 27
Vital Signs / Physical Exam
Vital Signs
Vital Signs
Temp Pulse Resp BP Pulse Ox
98.1 F 74 18 127/73 98
04/16/24 07:40 04/16/24 09:28 04/16/24 07:40 04/16/24 09:28 04/16/24 07:40
Physical Exam
Constitutional: No Acute Distress
Cardiovascular: Regular Rate and S1/S2; Negative Murmur or Rub
Pulmonary: Clear and Symmetric; Negative Wheezes or Rales
Gastrointestinal: Soft, Non Tender, Non Distended and Normal Bowel Sounds
Extremities: Other (right lower extremity prominent subcuticular bleeding, no erythema, no warmth; there is a ruptured serous bullae on the posterior calf and tenderness without erythema over the heel)
Skin: Warm and Dry; Negative Rash or Jaundice
Objective Data
Lab Data
Lab Results
04/16/24 07:06
04/16/24 07:06
ESR Cancelled 04/09/24 14:04
PT 14.6 Sec (11.4-14.6) 04/09/24 14:42
INR 1.16 04/09/24 14:42
APTT 28.5 Sec (23.4-35.0) 04/09/24 14:42
Estimated Creat Clear 106 ml/min 04/16/24 07:06
Lactic Acid 1.0 mmol/L (0.7-2.0) 04/09/24 17:14
Total Bilirubin 0.6 mg/dl (0.2-1.3) 04/15/24 06:04
AST 83 U/L (17-59) H 04/15/24 06:04
ALT 55 U/L (0-50) H 04/15/24 06:04
Alkaline Phosphatase 67 U/L (38-126) 04/15/24 06:04
C-Reactive Protein Cancelled 04/09/24 14:04
Most recent labs reviewed.
Micro Results:
04/09/24 17:14 Blood Culture - Final
Blood/Venous No Growth - Final Report
04/09/24 17:14 Blood Culture - Preliminary
Blood/Venous Coagulase neg. staphylococcus
Additional testing on request
Gram Stain - Preliminary
04/10/24 CT LE: Probable diffuse left lower extremity cellulitis. No abscess. Intact osseous structures.
[2024-04-16] MEDS: REFRESH EYE DROPS (PF) 1 DROPS OPHTH (12:34)
[2024-04-16] MEDS: LIORESAL 10 MG PO (12:34)
[2024-04-16] MEDS: ROCEPHIN 2000 MG IV (13:48)
[2024-04-16] MEDS: STERILE WATER FOR INJECTION 20 ML IV (13:48)
[2024-04-16 15:10] VITALS: BP 114/78; PULSE 80; O2SAT 100
[2024-04-16 15:30] VITALS: BP 114/78
[2024-04-16] MEDS: LOVENOX 40 MG SC (17:03)
[2024-04-16] MEDS: NEURONTIN 100 MG PO (21:05)
[2024-04-16] MEDS: PEPCID 20 MG PO (21:05)
[2024-04-16] MEDS: SINEMET CR 50/200 (EXTENDED RELEASE) 1 TABLET PO (21:06)
[2024-04-16] MEDS: NON-FORMULARY ITEM 50 MG PO (21:06)
[2024-04-16 23:45] VITALS: BP 130/70
[2024-04-17 00:50] LABS: Haptoglobin 373 mg/dL (30-200)
[2024-04-17 07:35] VITALS: BP 113/72
[2024-04-17 07:42] LABS: Hemoglobin 8.7 g/dL (13.0-18.0); Mean Corp Hgb Conc. 33.5 g/dL (33.0-37.0); Mean Corpuscular Hgb 36.3 pg (27.0-31.0); Mean Corpuscular Volume 108.3 fL (80.0-94.0); Mean Platelet Volume 9.9 fL (7.4-10.4); Platelet Count 231 10^3/uL (130-400); Red Cell Dist. Width 14.9 % (11.5-14.5); White Blood Cell Count 28.5 10^3/uL (4.8-10.8)
[2024-04-17 07:56] LABS: Blood Urea Nitrogen 18 mg/dl (9-20); Calcium 8.5 mg/dl (8.4-10.2); Carbon Dioxide 25 mmol/L (22-30); Chloride 105 mmol/L (98-107); Estimated Creatinine Clearance 106 ml/min; Glucose 88 mg/dl (70-99); Potassium 4.5 mmol/L (3.5-5.1); Sodium 141 mmol/L (135-145); eGFR > 60.00
[2024-04-17] MEDS: VITAMIN B-12 1000 MCG PO (08:29)
[2024-04-17] MEDS: ASPIR LOW (ENTERIC COATED) 81 MG PO (08:29)
[2024-04-17] MEDS: SINEMET 25-100 2 TABLET PO ×2 (08:29→12:03)
[2024-04-17] MEDS: CRESTOR 10 MG PO (08:30)
[2024-04-17] MEDS: RASAGILINE MESYLATE 1 MG PO (08:30)
[2024-04-17] MEDS: AMOXIL 1000 MG PO (08:30)
[2024-04-17] MEDS: FOLVITE 1 MG PO (08:30)
[2024-04-17] MEDS: ZESTRIL 5 MG PO (08:31)
[2024-04-17] MEDS: COLACE PO (08:31)
[2024-04-17 08:40] LABS: % Basophils 0.2 % (0-2); % Eosinophils 0.4 % (0-6); % Immature Granulocytes 0.2 % (0-0.5); % Lymphocytes 84.6 % (20.5-51.1); % Monocytes 4.3 % (1.7-9.3); % Neutrophils 10.3 % (42.2-75.2); Absolute Basophils 0.1 10^3/uL (0-0.2); Absolute Eosinophils 0.1 10^3/uL (0-0.7); Absolute Immature Granulocytes 0.1 10^3/uL (0-0.05); Absolute Lymphocytes 24.1 10^3/uL (1.2-3.4); Absolute Monocytes 1.2 10^3/uL (0.1-0.6); Absolute Neutrophils 2.9 10^3/uL (1.4-6.5); Nucleated Red Blood Cells % 0.1 % (-)
[2024-04-17 10:22] VITALS: BP 113/71; PULSE 85
--- NOTE | 2024-04-17 10:59 | W.PN.HOSP.TC ---
Today's Communication/Plan
-
dc home/VN
Assessment / Plan
Assessment / Plan
Assessment:
Severe sepsis
LLE cellulitis, Group A strep suspected
- CT without abscess or signs of nec fasc
- follow fever curve
- may not be able to follow WBC reliably in setting of known CLL
- elevated LLE at all times; counselled patient several times. d/w RN as well
- transitioned to Amox q8h x 5 further days
- s/p short course IV Clindamycin for toxin inhibition
CoNS bacteremia - likely contaminant per ID
Acute metabolic encephalopathy - due to sepsis. Mental status improving. Continue supportive measures.
Acute thrombocytopenia - likely due to sepsis. improving
hx of CLL
- stage 0 per Oncology. Followed by [facility] (Dr. Sagastume). IgG and SPEP sent to determine OP IVIG candidacy.
Macrocytic anemia - unknown acuity. Reticulocyte count 1.8%. Hemoglobin noted to be 10.0. Baseline unknown. B12 256 - on oral replacement. Folate normal. Hemolysis panel pending.
Parkinson's disease - continue home medications.
Essential hypertension - continue Lisinopril
Hyperlipidemia - on rosuvastatin.
Recent right total knee arthroplasty
Ambulatory dysfunction - has been using a walker since his recent knee surgery. PT/OT following
Hypokalemia - replete prn
stage 2 of gluteal cleft/PI
- POA
- follow wound care recs
DVT ppx: Lovenox
Code: Full
Dispo: home/VN
More than 30 minutes spent in discharge including
Final examination of the patient
Summarizing hospital stay
Instructions for continuing care to all relevant caregivers
Preparation of discharge records, prescriptions, and referral forms
Total time spent (in minutes): 41
Anticipated Discharge: Today
Subjective/Interval History
-
Date of Service: April 17, 2024
no new complaints at present
on oral Amox
Objective Data
-
Labs:
Laboratory Results
04/17/24
06:32
WBC 28.5 H
Hgb 8.7 L
Hct 26.0 L
Plt Count 231
Sodium 141
Potassium 4.5
Chloride 105
Carbon Dioxide 25
BUN 18
Creatinine 0.7
Glucose 88
Calcium 8.5
Vital Signs:
Vital Signs
Temp Pulse Resp BP Pulse Ox
97.8 F 80 16 113/72 96
04/17/24 07:35 04/17/24 08:31 04/17/24 07:35 04/17/24 08:31 04/17/24 07:35
I&O
04/16/24 04/17/24 04/18/24
06:59 06:59 06:59
Intake Total 540 / 540 840 / 840
Balance 540 / 540 840 / 840
Physical Exam
-
General: No Apparent Distress
HEENT: Normocephalic and Atraumatic
Respiratory: Negative Wheezes
Cardiac: Regular Rhythm and S1/S2
GI: Soft
Genito-urinary: No Costovertebral Tender
Neuro: AO x 3
Hematologic / Lymphatic: No Lymphadenopathy
Psych: Calm
Data Reviewed
-
Total Time Spent with Patient (in minutes): 41
Labs: Labs Reviewed by me
--- NOTE | 2024-04-17 11:07 | W.DS.TRANS ---
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
-
Discharge Instructions:
Discharge Diagnosis/Procedures LLE Cellulitis with sepsis, underlying CLL
Diet Low Fat
Activity As tolerated
Bathing Restrictions None
Other Services VN,PT,OT
Instructions:
Stand-Alone Forms:
Changes to Home Medications: No
Discharge Medications:
DC Medications w/original date entered in [employer]
rasagiline 1 mg tablet 1 mg PO DAILY PARKINSON 08/23/19
rosuvastatin 10 mg tablet 10 mg PO DAILY High Cholesterol 08/23/19
sertraline 50 mg tablet 100 mg PO DAILY Mental Health/Anxiety 08/23/19
tolterodine 4 mg capsule,extended release 24 hr 4 mg PO DAILY Urinary Issue 08/23/19
aspirin 81 mg tablet,delayed release (Adult Aspirin Regimen) 81 mg PO BID ##1 09/07/19
lisinopril 10 mg tablet 10 mg PO DAILY Blood Pressure 09/07/19
baclofen 10 mg tablet 10 mg PO BID PRN muscle spasms #30 tabs 09/09/19
docusate sodium 100 mg capsule 100 mg PO BID 09/09/19
famotidine 20 mg tablet (Ac[employer] (famotidine)) 20 mg PO HS #30 tabs 09/09/19
magnesium hydroxide 400 mg/5 mL oral suspension 30 ml PO DAILYPRN PRN constipation 09/09/19
ondansetron HCl 4 mg tablet 4 mg PO Q6HPRN PRN nausea #30 tabs 09/09/19
oxycodone 5 mg tablet 5 mg PO Q4HPRN PRN moderate-severe pain #30 tabs 09/09/19
acetaminophen 500 mg tablet 50 mg PO HS Pain 04/09/24
opicapone 50 mg capsule (Ongentys) 50 mg PO HS PARIKINSONS 04/09/24
mupirocin 2 % topical ointment 1 applic intranasal BID Infection 04/10/24
sennosides 8.6 mg tablet (senna) 2 tab PO BID Constipation 04/10/24
carbidopa 25 mg-levodopa 100 mg tablet 2 tab PO TID@0800,1200,1800 Parkinson's 04/11/24
carbidopa ER 50 mg-levodopa 200 mg tablet,extended release 1 tab PO HS parkinson's 04/11/24
gabapentin 100 mg capsule 100 mg PO HS Pain 04/11/24
amoxicillin 500 mg capsule 1,000 mg (2 x 500 mg) PO Q8H #15 caps 04/17/24
cyanocobalamin (vitamin B-12) 1,000 mcg tablet 1,000 mcg PO DAILY #100 tabs 04/17/24
folic acid 1 mg tablet 1 mg PO DAILY #100 tabs 04/17/24
Home Medication Changes
Pending Results: No
Total time spent discharging patient (in min): 41
--- NOTE | 2024-04-17 11:40 | CM ---
Addendum entered by Tiffanie Mcadams 04/17/24 11:58:
Accepted by [facility] for HH needs
Original Note:
Case management following for discharge planning
Chart reviewed. Met with pt and his at bedside
Pt for discharge today
CM consult - VN
Spoke with pt and . PT recommending HH vs PT - pt prefers to go home with HH
Offered choice - prefers [facility]
Referral sent in [facility]
Pts will provide ride at discharge
Discussed IMM
Plan - home with [facility]
f - [phone]
--- NOTE | 2024-04-17 11:49 | W.PN.ID1 ---
Date of Service
Date of Service: April 17, 2024
Today's Communication
- switch to amoxicillin 1 gm IV q8 hrs for 5 more days
- Per Hem/onc, WBC may not be reliable to monitor abx response.
-Continue compression, elevation as tolerated
- follow upwith pcp
Assessment / Plan
# Severe LLE non-purulent cellulitis slowly improving -> bright erythema now dark purple.
# Fever resolved
# Leukocytosis (lymphocytic) in setting of CLL, continues to trend up. %neutrophils trending down.
brings in records with baseline WBC 27
#- Bcx 1 of 2 CoNS=contaminant.
- Still suspect Group A streptococcus.
- switch to amoxicillin 1 gm IV q8 hrs for 5 more days
- Per Hem/onc, WBC may not be reliable to monitor abx response.
-Continue compression, elevation as tolerated
- follow upwith pcp
# Conditions prior to admission
Parkinson's disease
Hypertension
CLL
HLD
Overactive bladder
Osteoarthritis
Lumbar degenerative disc disease
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
Left partial knee replacement
Chief Complaint
-: Leukocytosis and Cellulitis
Subjective / Review of Systems
afebrile
bp stable
stable wbc count
no new complaints
Vital Signs / Physical Exam
Vital Signs
Vital Signs
Temp Pulse Resp BP Pulse Ox
97.8 F 80 16 113/72 96
04/17/24 07:35 04/17/24 08:31 04/17/24 07:35 04/17/24 08:31 04/17/24 07:35
Physical Exam
Constitutional: No Acute Distress
Cardiovascular: Regular Rate and S1/S2; Negative Murmur or Rub
Pulmonary: Clear and Symmetric; Negative Wheezes or Rales
Gastrointestinal: Soft, Non Tender, Non Distended and Normal Bowel Sounds
Skin: Warm and Dry; Negative Rash or Jaundice
Wound: Other (dressing clean, dry, intact)
Objective Data
Lab Data
Lab Results
04/17/24 06:32
04/17/24 06:32
ESR Cancelled 04/09/24 14:04
PT 14.6 Sec (11.4-14.6) 04/09/24 14:42
INR 1.16 04/09/24 14:42
APTT 28.5 Sec (23.4-35.0) 04/09/24 14:42
Estimated Creat Clear 106 ml/min 04/17/24 06:32
Lactic Acid 1.0 mmol/L (0.7-2.0) 04/09/24 17:14
Total Bilirubin 0.6 mg/dl (0.2-1.3) 04/15/24 06:04
AST 83 U/L (17-59) H 04/15/24 06:04
ALT 55 U/L (0-50) H 04/15/24 06:04
Alkaline Phosphatase 67 U/L (38-126) 04/15/24 06:04
C-Reactive Protein Cancelled 04/09/24 14:04
Most recent labs reviewed.
Micro Results:
04/09/24 17:14 Blood Culture - Final
Blood/Venous Coagulase neg. staphylococcus
Additional testing on request
Gram Stain - Final
04/09/24 17:14 Blood Culture - Final
Blood/Venous No Growth - Final Report
04/10/24 CT LE: Probable diffuse left lower extremity cellulitis. No abscess. Intact osseous structures.
Care Review
Plan reviewed with: Physician (Dr Dailey - [place])
--- NOTE | 2024-04-17 12:10 | PTCARENOTE ---
Patient's spouse was instructed/ shown on how to perform the LLE dressing change as ordered. verbalizes understanding.
[2024-04-17 14:01] VITALS: BP 115/63
[2024-04-17 22:18] LABS: Albumin 2.33 g/dL (3.75-5.01); Alpha 1 Globulin 0.53 g/dL (0.19-0.46); Alpha 2 Globulin 0.94 g/dL (0.48-1.05); Free Kappa Light Chains,Quant 8.94 mg/L (3.30-19.40); Free Lambda Light Chains,Quant 19.42 mg/L (5.71-26.30); IgA 35 mg/dL (68-408); IgG 256 mg/dL (768-1632); IgM 22 mg/dL (35-263); Immunofixation Electrophoresis IFE Done; Kappa/Lambda Fr Light Ratio 0.46 (0.26-1.65); Total Protein-Electrophoresis 4.6 g/dL (6.3-8.2)
== END 2024-04-17 14:10 | disposition home health service (06) | DRG 871 ==
LOC: 2 NORTH 17:21
PROVIDERS: Nurse Practitioner Acute Care; ADMITTING PHYSICIAN Hospitalist; ATTENDING PHYSICIAN Internal Medicine; CONSULT PHYSICIAN Internal Medicine Hematology & Oncology; CONSULT PHYSICIAN Internal Medicine Infectious Disease; EMERGENCY PHYSICIAN Emergency Medicine; FAMILY PHYSICIAN Family Medicine
DX: A41.2 Sepsis due to unspecified staphylococcus (principal); G93.41 Metabolic encephalopathy; L03.116 Cellulitis of left lower limb; C91.10 Chronic lymphocytic leukemia of B-cell type not having achieved remission; I10 Essential (primary) hypertension; E78.00 Pure hypercholesterolemia, unspecified; D69.6 Thrombocytopenia, unspecified; R65.20 Severe sepsis without septic shock; M79.89 Other specified soft tissue disorders; G20.A1 Parkinson's disease without dyskinesia, without mention of fluctuations; E87.6 Hypokalemia; R68.83 Chills (without fever); D69.59 Other secondary thrombocytopenia; L89.322 Pressure ulcer of left buttock, stage 2; R53.1 Weakness; M19.90 Unspecified osteoarthritis, unspecified site; M51.36 Other intervertebral disc degeneration, lumbar region; N32.81 Overactive bladder; R26.2 Difficulty in walking, not elsewhere classified; D64.89 Other specified anemias; Z96.651 Presence of right artificial knee joint; Z79.82 Long term (current) use of aspirin
CPT/HCPCS: 71045; 73564; 73701; 80048; 80053; 81003; 82248; 82607; 82728; 82746; 82784; 82962; 83010; 83521; 83540; 83550; 83605; 83615; 84155; 84165; 85025; 85045; 85610; 85730; 86334; 86803; 86880; 87040; 87150; 87205; 93971; 97110; 97116; 97163; 97167; 97530; 97535; 99285; Q9967

== ENCOUNTER → 2024-04-26 12:29 | Outpatient (REF) | payer MEDICARE, OTHER, SELFPAY | LOC: WOUND 12:29 | PROVIDERS: ATTENDING PHYSICIAN Surgery; FAMILY PHYSICIAN Family Medicine | DX: I87.312 Chronic venous hypertension (idiopathic) with ulcer of left lower extremity (principal); L97.322 Non-pressure chronic ulcer of left ankle with fat layer exposed; L97.822 Non-pressure chronic ulcer of other part of left lower leg with fat layer exposed; I87.2 Venous insufficiency (chronic) (peripheral); I73.9 Peripheral vascular disease, unspecified; C91.10 Chronic lymphocytic leukemia of B-cell type not having achieved remission; G20.A1 Parkinson's disease without dyskinesia, without mention of fluctuations | CPT/HCPCS: 99204 ==

== ENCOUNTER 2024-04-28 16:00 | Outpatient (RCR) | payer OTHER, SELFPAY | END 2024-04-28 23:59 | disposition home or self-care (01) | LOC: RPT 16:00 | PROVIDERS: ATTENDING PHYSICIAN Orthopaedic Surgery Adult Reconstructive Orthopaedic Surgery; FAMILY PHYSICIAN Family Medicine | DX: Z47.1 Aftercare following joint replacement surgery (principal); Z96.651 Presence of right artificial knee joint; G20.A1 Parkinson's disease without dyskinesia, without mention of fluctuations; Z73.6 Limitation of activities due to disability | CPT/HCPCS: 97010; 97110; 97116; 97164; 97530 ==

== ENCOUNTER → 2024-05-12 09:45 | Outpatient (REF) | payer OTHER, SELFPAY | LOC: WOUND 09:45 | PROVIDERS: ATTENDING PHYSICIAN Surgery; FAMILY PHYSICIAN Family Medicine | DX: I87.312 Chronic venous hypertension (idiopathic) with ulcer of left lower extremity (principal); L97.322 Non-pressure chronic ulcer of left ankle with fat layer exposed; L97.822 Non-pressure chronic ulcer of other part of left lower leg with fat layer exposed; I87.2 Venous insufficiency (chronic) (peripheral); I73.9 Peripheral vascular disease, unspecified; C91.10 Chronic lymphocytic leukemia of B-cell type not having achieved remission; G20.A1 Parkinson's disease without dyskinesia, without mention of fluctuations | CPT/HCPCS: 11042 ==

== ENCOUNTER → 2024-05-19 10:01 | Outpatient (REF) | payer OTHER, SELFPAY | LOC: WOUND 10:01 | PROVIDERS: ATTENDING PHYSICIAN Surgery; FAMILY PHYSICIAN Family Medicine | DX: I87.312 Chronic venous hypertension (idiopathic) with ulcer of left lower extremity (principal); L97.322 Non-pressure chronic ulcer of left ankle with fat layer exposed; L97.822 Non-pressure chronic ulcer of other part of left lower leg with fat layer exposed; I87.2 Venous insufficiency (chronic) (peripheral); I73.9 Peripheral vascular disease, unspecified; C91.10 Chronic lymphocytic leukemia of B-cell type not having achieved remission; G20.A1 Parkinson's disease without dyskinesia, without mention of fluctuations | CPT/HCPCS: 99212 ==

== ENCOUNTER 2024-06-02 09:56 | Outpatient (RCR) | payer OTHER, SELFPAY | END 2024-06-02 23:59 | disposition home or self-care (01) | LOC: RPT 09:56 | PROVIDERS: ATTENDING PHYSICIAN Orthopaedic Surgery Adult Reconstructive Orthopaedic Surgery; FAMILY PHYSICIAN Family Medicine | DX: Z47.1 Aftercare following joint replacement surgery (principal); Z96.651 Presence of right artificial knee joint; G20.A1 Parkinson's disease without dyskinesia, without mention of fluctuations; Z73.6 Limitation of activities due to disability | CPT/HCPCS: 97010; 97110; 97116; 97530 ==

== ENCOUNTER 2024-07-01 14:01 | Outpatient (RCR) | payer OTHER, SELFPAY | END 2024-07-01 23:59 | disposition home or self-care (01) | LOC: RPT 14:01 | PROVIDERS: ATTENDING PHYSICIAN Orthopaedic Surgery Adult Reconstructive Orthopaedic Surgery; FAMILY PHYSICIAN Family Medicine | DX: Z47.1 Aftercare following joint replacement surgery (principal); Z96.651 Presence of right artificial knee joint; G20.A1 Parkinson's disease without dyskinesia, without mention of fluctuations; Z73.6 Limitation of activities due to disability | CPT/HCPCS: 97010; 97110; 97112; 97116; 97530 ==

== ENCOUNTER 2024-07-14 14:16 | Outpatient (RCR) | payer OTHER, SELFPAY | END 2024-07-14 23:59 | disposition home or self-care (01) | LOC: RPT 14:16 | PROVIDERS: ATTENDING PHYSICIAN Orthopaedic Surgery Adult Reconstructive Orthopaedic Surgery; FAMILY PHYSICIAN Family Medicine | DX: Z47.1 Aftercare following joint replacement surgery (principal); Z96.651 Presence of right artificial knee joint; G20.A1 Parkinson's disease without dyskinesia, without mention of fluctuations; Z73.6 Limitation of activities due to disability | CPT/HCPCS: 97010; 97110; 97112; 97530 ==

== ENCOUNTER → 2024-07-18 15:12 | Outpatient (REF) | payer OTHER, SELFPAY | LOC: HWRAD 15:12 | PROVIDERS: ATTENDING PHYSICIAN Family Medicine | DX: M54.17 Radiculopathy, lumbosacral region (principal) | CPT/HCPCS: 72110 ==

== ENCOUNTER → 2024-07-20 12:39 | Outpatient (REF) | payer OTHER, SELFPAY | LOC: RAD 12:39 | PROVIDERS: ATTENDING PHYSICIAN Family Medicine | DX: M54.17 Radiculopathy, lumbosacral region (principal); M25.552 Pain in left hip | CPT/HCPCS: 73502 ==

== ENCOUNTER → 2024-08-15 08:09 | Outpatient (REF) | payer OTHER, SELFPAY | LOC: MRI 3T 08:09 | PROVIDERS: ATTENDING PHYSICIAN Family Medicine | DX: M54.42 Lumbago with sciatica, left side (principal) | CPT/HCPCS: 72148; 73721 ==

== ENCOUNTER → 2024-09-05 13:52 | Outpatient (REF) | payer OTHER, SELFPAY | LOC: RAD 13:52 | PROVIDERS: ATTENDING PHYSICIAN Student in an Organized Health Care Education/Training Program; FAMILY PHYSICIAN Family Medicine | DX: C91.10 Chronic lymphocytic leukemia of B-cell type not having achieved remission (principal) | CPT/HCPCS: 70491; 71260; 74160; Q9967 ==

== ENCOUNTER 2024-10-27 14:01 | Outpatient (RCR) | payer OTHER, SELFPAY | END 2024-10-27 23:59 | disposition home or self-care (01) | LOC: RPT 14:01 | PROVIDERS: ATTENDING PHYSICIAN Student in an Organized Health Care Education/Training Program; FAMILY PHYSICIAN Family Medicine | DX: M54.17 Radiculopathy, lumbosacral region (principal); Z73.6 Limitation of activities due to disability; R26.89 Other abnormalities of gait and mobility; M62.81 Muscle weakness (generalized); M48.062 Spinal stenosis, lumbar region with neurogenic claudication | CPT/HCPCS: 97110; 97140; 97163; 97530 ==

== ENCOUNTER → 2024-11-07 08:33 | Outpatient (REF) | payer OTHER, MEDICARE, SELFPAY ==
[2024-11-07 09:36] LABS: ALT (SGPT) < 10 U/L (0-50); AST (SGOT) 22 U/L (17-59); Albumin 3.5 g/dl (3.5-5.0); Alkaline Phosphatase 87 U/L (38-126); Blood Urea Nitrogen 22 mg/dl (9-20); Carbon Dioxide 30 mmol/L (22-30); Chloride 109 mmol/L (98-107); Glucose 100 mg/dl (70-99); LDH 173 U/L (120-246); Magnesium 2.2 mg/dl (1.6-2.3); Phosphorus 3.7 mg/dl (2.5-4.5); Sodium 143 mmol/L (135-145); Total Bilirubin 1.3 mg/dl (0.2-1.3); Total Protein 5.6 g/dl (6.3-8.2); eGFR > 60.00
[2024-11-07 10:09] LABS: % Basophils 0.5 % (0-2); % Immature Granulocytes 1.5 % (0-0.5); % Lymphocytes 24.6 % (20.5-51.1); % Monocytes 6.7 % (1.7-9.3); % Neutrophils 65.7 % (42.2-75.2); Absolute Lymphocytes 0.5 10^3/uL (1.2-3.4); Absolute Monocytes 0.1 10^3/uL (0.1-0.6); Absolute Neutrophils 1.3 10^3/uL (1.4-6.5); Hematocrit 27.6 % (39.0-52.0); Hemoglobin 9.3 g/dL (13.0-18.0); Mean Corp Hgb Conc. 33.7 g/dL (33.0-37.0); Mean Corpuscular Hgb 37.2 pg (27.0-31.0); Mean Corpuscular Volume 110.4 fL (80.0-94.0); Nucleated Red Blood Cells % 0 % (-); Platelet Count 238 10^3/uL (130-400); Red Cell Dist. Width 15.6 % (11.5-14.5)
== END ==
LOC: REG 08:33
PROVIDERS: ATTENDING PHYSICIAN Nurse Practitioner Family; FAMILY PHYSICIAN Family Medicine
DX: C91.10 Chronic lymphocytic leukemia of B-cell type not having achieved remission (principal)
CPT/HCPCS: 36415; 80053; 83615; 83735; 84100; 85025

== ENCOUNTER → 2024-11-21 10:04 | Outpatient (REF) | payer OTHER, SELFPAY ==
[2024-11-21 10:46] LABS: % Basophils 0.6 % (0-2); % Eosinophils 0.6 % (0-6); % Immature Granulocytes 0.6 % (0-0.5); % Lymphocytes 17.8 % (20.5-51.1); % Monocytes 15.7 % (1.7-9.3); % Neutrophils 64.7 % (42.2-75.2); Absolute Lymphocytes 0.6 10^3/uL (1.2-3.4); Absolute Monocytes 0.5 10^3/uL (0.1-0.6); Absolute Neutrophils 2.1 10^3/uL (1.4-6.5); Hematocrit 34.1 % (39.0-52.0); Hemoglobin 11.3 g/dL (13.0-18.0); Mean Corp Hgb Conc. 33.1 g/dL (33.0-37.0); Mean Corpuscular Hgb 36.1 pg (27.0-31.0); Mean Corpuscular Volume 108.9 fL (80.0-94.0); Mean Platelet Volume 9.9 fL (7.4-10.4); Nucleated Red Blood Cells % 0 % (-); Platelet Count 210 10^3/uL (130-400); Red Blood Cell Count 3.13 10^6/uL (4.70-6.10); Red Cell Dist. Width 14.6 % (11.5-14.5); White Blood Cell Count 3.3 10^3/uL (4.8-10.8)
== END ==
LOC: REG 10:04
PROVIDERS: ATTENDING PHYSICIAN Nurse Practitioner Family; FAMILY PHYSICIAN Family Medicine
DX: C91.10 Chronic lymphocytic leukemia of B-cell type not having achieved remission (principal)
CPT/HCPCS: 36415; 85025

== ENCOUNTER 2024-11-28 16:52 | Outpatient (RCR) | payer OTHER, SELFPAY | END 2024-11-28 23:59 | disposition home or self-care (01) | LOC: RPT 16:52 | PROVIDERS: ATTENDING PHYSICIAN Student in an Organized Health Care Education/Training Program; FAMILY PHYSICIAN Family Medicine | DX: M54.17 Radiculopathy, lumbosacral region (principal); R26.89 Other abnormalities of gait and mobility; Z73.6 Limitation of activities due to disability; M62.81 Muscle weakness (generalized); M48.062 Spinal stenosis, lumbar region with neurogenic claudication | CPT/HCPCS: 97010; 97110; 97112; 97140; 97530 ==

== ENCOUNTER 2024-12-21 15:53 | Outpatient (RCR) | payer OTHER, SELFPAY | END 2024-12-21 23:59 | disposition home or self-care (01) | LOC: RPT 15:53 | PROVIDERS: ATTENDING PHYSICIAN Student in an Organized Health Care Education/Training Program; FAMILY PHYSICIAN Family Medicine | DX: M54.17 Radiculopathy, lumbosacral region (principal); Z73.6 Limitation of activities due to disability; R26.89 Other abnormalities of gait and mobility; M62.81 Muscle weakness (generalized); M48.062 Spinal stenosis, lumbar region with neurogenic claudication | CPT/HCPCS: 97010; 97110; 97112; 97140; 97530 ==

== ENCOUNTER → 2025-01-20 11:29 | Outpatient (REF) | payer OTHER, SELFPAY | LOC: RAD 11:29 | PROVIDERS: ATTENDING PHYSICIAN Nurse Practitioner Family; FAMILY PHYSICIAN Family Medicine | DX: M54.2 Cervicalgia (principal) | CPT/HCPCS: 72050 ==

== ENCOUNTER 2025-03-02 06:45 | Outpatient (RCR) | payer OTHER, SELFPAY | END 2025-03-02 23:59 | disposition home or self-care (01) | LOC: RPT 06:45 | PROVIDERS: ATTENDING PHYSICIAN Orthopaedic Surgery Adult Reconstructive Orthopaedic Surgery; FAMILY PHYSICIAN Family Medicine | DX: M25.561 Pain in right knee (principal); M25.562 Pain in left knee; M54.50 Low back pain, unspecified; Z96.651 Presence of right artificial knee joint; Z73.6 Limitation of activities due to disability | CPT/HCPCS: 97110; 97162; 97530 ==

== ENCOUNTER → 2025-03-20 14:09 | Outpatient (REF) | payer OTHER, SELFPAY | LOC: RAD 14:09 | PROVIDERS: ATTENDING PHYSICIAN Student in an Organized Health Care Education/Training Program; FAMILY PHYSICIAN Family Medicine | DX: C91.10 Chronic lymphocytic leukemia of B-cell type not having achieved remission (principal) | CPT/HCPCS: 70491; 71260; 74177; Q9967 ==

== ENCOUNTER → 2025-03-27 11:57 | Outpatient (REF) | payer OTHER, SELFPAY ==
[2025-03-27 16:23] LABS: Hematocrit 39.3 % (39.0-52.0); Hemoglobin 13.3 g/dL (13.0-18.0); Mean Corp Hgb Conc. 33.8 g/dL (33.0-37.0); Mean Corpuscular Volume 97.3 fL (80.0-94.0); Nucleated Red Blood Cells % 0 % (-); Platelet Count 248 10^3/uL (130-400); Red Cell Dist. Width 15.0 % (11.5-14.5)
[2025-03-27 16:34] LABS: ALT (SGPT) 32 U/L (0-50); AST (SGOT) 30 U/L (17-59); Albumin 4.6 g/dl (3.5-5.0); Alkaline Phosphatase 71 U/L (38-126); Blood Urea Nitrogen 24 mg/dl (9-20); Calcium 9.0 mg/dl (8.4-10.2); Carbon Dioxide 26 mmol/L (22-30); Chloride 105 mmol/L (98-107); Glucose 94 mg/dl (70-99); Potassium 4.6 mmol/L (3.5-5.1); Sodium 138 mmol/L (135-145); Total Protein 6.9 g/dl (6.3-8.2); eGFR > 60.00
== END ==
LOC: HWLAB 11:57
PROVIDERS: ATTENDING PHYSICIAN Family Medicine
DX: C91.10 Chronic lymphocytic leukemia of B-cell type not having achieved remission (principal)
CPT/HCPCS: 36415; 80053; 85025

== ENCOUNTER 2025-03-29 17:00 | Outpatient (RCR) | payer OTHER, SELFPAY | END 2025-03-29 23:59 | disposition home or self-care (01) | LOC: RPT 17:00 | PROVIDERS: ATTENDING PHYSICIAN Orthopaedic Surgery Adult Reconstructive Orthopaedic Surgery; FAMILY PHYSICIAN Family Medicine | DX: M25.561 Pain in right knee (principal); M25.562 Pain in left knee; M54.50 Low back pain, unspecified; Z96.651 Presence of right artificial knee joint; Z73.6 Limitation of activities due to disability | CPT/HCPCS: 97110; 97530 ==

== ENCOUNTER 2025-04-17 13:08 | Outpatient (RCR) | payer OTHER, SELFPAY | END 2025-04-17 23:59 | disposition home or self-care (01) | LOC: RPT 13:08 | PROVIDERS: ATTENDING PHYSICIAN Orthopaedic Surgery Adult Reconstructive Orthopaedic Surgery; FAMILY PHYSICIAN Family Medicine | DX: M25.561 Pain in right knee (principal); M25.562 Pain in left knee; M54.50 Low back pain, unspecified; Z96.651 Presence of right artificial knee joint; Z73.6 Limitation of activities due to disability | CPT/HCPCS: 97110 ==